=== PATIENT | female | born 1965 | race Caucasian/White ===

== ENCOUNTER 2016-11-17 17:02 | Emergency (ER) | payer OTHER ==
[2016-11-17 18:33] LABS: Urine Bilirubin Negative (Negative); Urine Glucose Negative (Negative); Urine Nitrite Negative (Negative)
[2016-11-17] MEDS ORDERED: Ketorolac INJ* 30 MG/ML 1 ML VIAL IV PUSH ONE (18:38)
[2016-11-17] MEDS ORDERED: NS 0.9% 1000 ML* 1,000 ML IV ONE (18:43)
[2016-11-17 18:54] LABS: Hematocrit 45 % (35-47); Hemoglobin 14.8 g/dl (12.0-16.0); Mean Corpuscular HGB Conc 33 g/dl (31-36); Mean Corpuscular Hemoglobin 31 pg (27-31); Mean Corpuscular Volume 93 fL (80-97); Mean Platelet Volume 7 um3 (7.4-10.4); Red Blood Count 4.82 10^6/ul (4.0-5.4); Red Cell Distribution Width 14 % (10.5-15); White Blood Count 12.2 10^3/ul (3.5-10.8)
[2016-11-17 19:10] LABS: ALT 20 U/L (7-52); AST 16 U/L (13-39); Albumin 4.7 g/dL (3.2-5.2); Alkaline Phosphatase 46 U/L (34-104); Anion Gap 7 mmol/L (2-11); BUN/Creatinine Ratio 14.3 (8-20); Blood Urea Nitrogen 10 mg/dL (6-24); C Reactive Protein < 1.00 mg/L (< 5.00); CO2 Carbon Dioxide 27 mmol/L (22-32); Calcium 9.5 mg/dL (8.6-10.3); Chloride 103 mmol/L (101-111); EGFR African American 114.4 (>60); EGFR Non-African American 88.9 (>60); Globulin 2.8 g/dL (2-4); Glucose 75 mg/dL (70-100); Lipase 39 U/L (11.0-82.0); Potassium 3.8 mmol/L (3.5-5.0); Sodium 137 mmol/L (133-145); Total Protein 7.5 g/dL (6.4-8.9)
--- NOTE | 2016-11-17 19:23 | RAD ---
INDICATION: Rib pain COMPARISON: Chest x-ray January 03, 2008 TECHNIQUE: PA and lateral dual-energy views were obtained. FINDINGS: Bones/Soft Tissues: There are no acute bony findings. Cardiomediastinal: The cardiomediastinal silhouette is normal. Lungs: There are no infiltrates. Pleura: There are no pleural effusions. Other: None IMPRESSION: NO ACTIVE DISEASE.
--- NOTE | 2016-11-17 19:25 | RAD ---
INDICATION: Atraumatic right rib pain COMPARISON: None TECHNIQUE: Multiple views of the ribs were obtained. FINDINGS: Bones: There is no evidence of acute rib fracture. LUNGS: The lungs are clear. There is no pneumothorax. Pleural spaces: There is no evidence of hemothorax. Other: There are surgical clips in left upper quadrant. IMPRESSION: NO ACUTE RIB FRACTURE
[2016-11-17 20:02] LABS: Troponin I 0.01 ng/mL (<0.04)
--- NOTE | 2016-11-17 21:41 | RAD ---
INDICATION: Abdominal pain COMPARISON: CT March 25, 2015 TECHNIQUE: Longitudinal and transverse scans of the right upper quadrant were obtained. Doppler interrogation of the hepatic and portal venous system was performed. FINDINGS: Liver: The liver is normal in size. There is an echogenic, nonshadowing lesion in the right hepatic lobe consistent with a hemangioma. This measures 1.2 cm. This likely represents the low-density lesion seen on earlier noncontrast CT imaging. The liver measures 13.6 cm in cephalocaudal dimension. Vessels: There is normal hepatic and portal venous flow. Bile ducts: There is no evidence of intrahepatic or extrahepatic ductal dilatation. The common duct measures 0.4 cm. Gallbladder: There is no evidence of cholelithiasis. There is incidental gallbladder polyp. Pancreas: The visualized pancreas appears normal. Evaluation is limited due to bowel gas Right kidney: The kidneys normal in size measuring 10.7 x 4.7 x 4.7 cm. There are multiple tiny renal calculi as also identified on earlier CT imaging. No hydronephrosis or renal parenchymal mass is seen. IVC and aorta: The aorta and superior vena cava appear normal. Fluid: There is no ascites. Other: None. IMPRESSION: INCIDENTAL GALLBLADDER POLYP. NO EVIDENCE OF CHOLELITHIASIS. NONOBSTRUCTIVE, BILATERAL RENAL CALCULI.
[2016-11-17] MEDS ORDERED: Carisoprodol TAB* 350 MG PO ONE (21:51)
[2016-11-17 22:05] VITALS: BP 126/84
--- NOTE | 2016-11-17 22:07 | UC ---
Back Pain HPI - HPI Summary HPI Summary: SINCE YESTERDAY, RIGHT MIDBACK PAIN RADIATES AROUND RIBS. WORSE WITH DEEP BREATHS. NO KNOWN INJURY, NO PAIN WITH URINATION. NO RASHES. HISTORY OH RA, HISTORY OF KIDNEY STONES. HAD GASTRIC BIPASS IN . - History of Current Complaint Chief Complaint: EDBackInjuryPain Stated Complaint: BACK PAIN RADIATING TO FRONT Time Seen by Provider: 11/17/16 17:07 Hx Obtained From: Patient, Family/News Clipping Cutter Onset/Duration: Sudden Onset, Lasting Days, Worse Since - TODAY Timing: Lasting Hours Severity Initially: Moderate Severity Currently: Severe - WITH POSITION AND DEEP BREATHING Pain Intensity: 8 Back Pain: Is Discrete @ - RIGHT MID BACK RADIATES AROUND RIB, Radiates To - RIGHT RIBS Character: Spasmodic Aggravating: Movement, Cough Alleviating: Rest, Position Associated Signs And Symptoms: Positive: Flank Pain. Negative: Swelling, Redness, Bruising, Fever, Weakness, Numbness, Tingling, Abdominal Pain, Bladder Incontinence, Bowel Incontinence, Weight Loss, Pain with Weight Bearing - Risk Factors AAA Risk Factors: Negative TAD Risk Factors: Negative Cauda Equina Risk Factors: Negative Epidural Abscess Risk Factors: Negative - Allergies/Home Medications Allergies/Adverse Reactions: Allergies Allergy/AdvReac Type Severity Reaction Status Date / Time Tramadol [From [facility]] Allergy Mild Itching Verified 11/18/15 18:25 SUGAR SUBSTITUTES Allergy Severe Anaphylatic Uncoded 11/18/15 18:25 Shock IODINE CONTRAST Allergy Mild Itching Uncoded 11/18/15 18:25 PMH/Surg Hx/FS Hx/Imm Hx Previously Healthy: Yes Endocrine History Of: Reports: Diabetes - HX OF. NONE SINCE GYPASS Respiratory History Of: Reports: Asthma GI/ History Of: Reports: Kidney Stones - 3 MONTHS Cancer History Of: Denies: Breast Cancer - Surgical History Surgical History: Yes Surgery Procedure, Year, and Place: GASTRIC BYPASS 10/07 [place]. D+C X3 [facility] [place]. BILAT CTR [facility] [place] 2003,2004. LAPAROSCOPY 1993 [place]. TONSILLECTOMY 1980 [facility] [place] - Family History Known Family History: Positive: Respiratory Disease Negative: Blood Disorder - Social History Occupation: Employed Full-time - FIELD ASSESSOR Lives: With Family Alcohol Use: Rare Substance Use Type: None Smoking Status (MU): Never Smoked Tobacco Household Exposure Type: Cigarettes Review of Systems Constitutional: Negative Skin: Negative Eyes: Negative ENT: Negative Respiratory: Negative Cardiovascular: Chest Pain - RIGHT RIB PAIN Gastrointestinal: Negative Genitourinary: Negative Musculoskeletal: Arthralgia, Myalgia Neurological: Negative Psychological: Negative All Other Systems Reviewed And Are Negative: Yes Physical Exam Triage Information Reviewed: Yes Appearance: Well-Appearing, No Pain Distress, Well-Nourished Vital Signs: Initial Vital Signs Temp 98.3 F 11/17/16 17:04 Pulse 90 11/17/16 17:04 Resp 18 11/17/16 17:04 BP 148/85 11/17/16 17:04 Pulse Ox 100 11/17/16 17:04 Vital Signs Reviewed: Yes Eye Exam: Normal Eyes: Positive: Conjunctiva Clear ENT Exam: Normal ENT: Positive: Normal ENT inspection, Hearing grossly normal, Pharynx normal, TMs normal Dental Exam: Normal Neck exam: Normal Neck: Positive: Supple, Nontender, No Lymphadenopathy. Negative: Tenderness @ Respiratory: Positive: Lungs clear, Normal breath sounds, No respiratory distress, No accessory muscle use. Negative: Chest non-tender - AND SPASM POSTERIO RIGHT PARASPINL MUSCOLES AND RIBTENDERNESS Cardiovascular Exam: Normal Cardiovascular: Positive: RRR, No Murmur, Pulses Normal, Brisk Capillary Refill Abdominal Exam: Normal Abdomen Description: Positive: Nontender, No Organomegaly, CVA Tenderness (R) Musculoskeletal Exam: Normal Musculoskeletal: Positive: Strength Intact, ROM Intact Neurological Exam: Normal Neurological: Positive: Alert, Muscle Tone Normal Psychological Exam: Normal Psychological: Positive: Normal Response To Family Skin Exam: Normal Skin: Negative: rashes Back Pain Course/Dx - Differential Dx/Diagnosis Differential Diagnosis/HQI/PQRI: Fracture, Renal Colic, Strain, Sprain, Other - OR, GALLBLADDER, PANCREATITIS Provider Diagnoses: MUSCLE STRAIN/SPASM RIB. NON OBSTRUCTIVE RENAL CALCULI. INCIDENTAL GALL BLADDER POLYP - Physician Notifications Discussed Patient Care With: DR NIMO GROVE : CONSULTED, SHE EXAMINED PATIENT BY MY REQUEST AND NOTED PALPABLE MUSCLE SPASM IN POSTERIOR RIGHT BACK/ RIBS. WELL REPRODUCABLE PAIN WITH MOVEMENT AND PALPATION OF THIS SPASM. MOREOVER, AFTER EXAMINATION, SHE CONCURRED IN ADVISEMENT OF TESTING WITH TROPONIN AND ULTRASOUND OF RIGHT KIDNEY AND GALLBLADDER PRECAUTION AGAINST POSSIBLE CONFOUNDING DIAGNOSES, GIVEN HEALTH HISTORY. Time Discussed With Above Provider: 19:35 Discharge - Discharge Plan Condition: Stable Disposition: HOME Prescriptions: Carisoprodol TAB* [Soma TAB*] 350 mg PO BID #20 tab MDD TWO TABS Patient Education Materials: Muscle Spasm (ED), Chest Wall Pain (ED) Referrals: [facility] [place] [facility] [Outside] Sabrina Mcgee MD [Primary Care Provider] - Additional Instructions: PHYSICAL THERAPY REFERRAL: You have been prescribed physical therapy. Treatments may include stretching, exercise, application of heat or cold, and other modalities. After an injury, PT can reduce swelling and pain. In recovery, PT is used to restore mobility and strength. Your specific treatment goals are: ___x__ Reduction of Swelling (EGS, US, ice as needed) _x____ Pain Reduction (EGS, US, ice as needed) __x___ TENS Pack Fitting and Instruction Wound Hydrotherapy __x___ Preservation of Mobility ___x__ Jainism of Mobility ___x__ Strength Jainism ___x__ Work or Sports Hardening This instruction sheet also serves as your PHYSICAL THERAPY REFERRAL! Please take it with you to the therapist, so he/she will be aware of your diagnosis and treatment plan. You may see the physical therapist of your choice for these treatments, but may wish to check with your insurance to be sure the provider you select is covered. It's important to see the doctor to whom you have been referred for follow up.
== END 2016-11-17 22:01 | disposition home or self-care (01) ==
LOC: ED 17:02
DX: S29.011A Strain of muscle and tendon of front wall of thorax, initial encounter (principal); N20.0 Calculus of kidney; R05 Cough; M54.9 Dorsalgia, unspecified; R07.9 Chest pain, unspecified; X58.XXXA Exposure to other specified factors, initial encounter; Y93.9 Activity, unspecified; Y92.9 Unspecified place or not applicable; Y99.9 Unspecified external cause status
CPT/HCPCS: 36415; 71020; 76705; 80053; 81003; 83605; 83690; 84484; 85025; 86140; 96361; 96374; 99282; A9270-GY; J1885

== ENCOUNTER 2017-01-30 19:04 | Emergency (ER) | payer OTHER ==
[2017-01-30] MEDS ORDERED: NS 0.9% 1000 ML* 1,000 ML IV ONE (20:13)
--- NOTE | 2017-01-30 20:14 | ED ---
Omar Pineda Anna, scribed for Memo Sen MD on 01/30/17 at 1949 . Abdominal Pain/Female - HPI Summary HPI Summary: Patient is a 51 y/o female coming to [facility] presenting with intermittent LLQ abdominal pain that began two weeks ago. She describes the severity of the pain as 4/10. Tonight, she was told by her doctor to come in for re-assessment. She had a fever of 100 F last night, but did not take anything for the fever. She additionally reports nausea. The pain and nausea are exacerbated by eating. She reports having bilateral stones and a cyst on her left ovary. She was recently diagnosed with diverticulitis. She finished a round of Abx four days ago. She has not tried Tylenol or other OTC medications. - History of Current Complaint Chief Complaint: EDSteffaniein Stated Complaint: ABD PAIN,FEVER Time Seen by Provider: 01/30/17 19:41 Hx Obtained From: Patient, Family/Inspector Watch Train - Accompanied by significant other Onset/Duration: Still Present Timing: Weeks Severity Initially: Moderate Severity Currently: Moderate Pain Intensity: 4 Pain Scale Used: 0-10 Numeric Location: Discrete At: LLQ Radiates: No Aggravating Factor(s): Food Associated Signs and Symptoms: Positive: Fever, Nausea Allergies/Adverse Reactions: Allergies Allergy/AdvReac Type Severity Reaction Status Date / Time Tramadol [From [facility]] Allergy Mild Itching Verified 01/30/17 19:22 SUGAR SUBSTITUTES Allergy Severe Anaphylatic Uncoded 01/30/17 19:22 Shock IODINE CONTRAST Allergy Mild Itching Uncoded 01/30/17 19:22 PMH/Surg Hx/FS Hx/Imm Hx Endocrine/Hematology History: Reports: Hx Diabetes - HX OF. NONE SINCE [place] Respiratory History: Reports: Hx Asthma GI History: Reports: Hx Gastroesophageal Reflux Disease History: Reports: Hx Kidney Infection - WITH STONES, Hx Kidney Stones - 3 MONTHS, Other Problems/Disorders - ovarian cyst Musculoskeletal History: Reports: Hx Arthritis - PSORIATIC, Hx Rheumatoid Arthritis Sensory History: Reports: Hx Contacts or Glasses Denies: Hx Hearing Aid Opthamlomology History: Reports: Hx Contacts or Glasses - Cancer History Hx Chemotherapy: No Hx Radiation Therapy: No - Surgical History Surgery Procedure, Year, and Place: GASTRIC BYPASS 10/07 [place]. D+C X3 [facility] [place]. BILAT CTR [facility] [place] 2003,2004. LAPAROSCOPY 1993 [place]. TONSILLECTOMY 1980 [facility] [place] Hx Anesthesia Reactions: No Infectious Disease History: No Infectious Disease History: Denies: Traveled Outside the [place] in Last 30 Days - Family History Known Family History: Positive: Respiratory Disease Negative: Blood Disorder - Social History Lives: With Family Alcohol Use: Rare Substance Use Type: Reports: None Smoking Status (MU): Never Smoked Tobacco Review of Systems Positive: Fever Positive: Abdominal Pain, Nausea All Other Systems Reviewed And Are Negative: Yes Physical Exam Triage Information Reviewed: Yes Vital Signs On Initial Exam: Initial Vitals Temp Pulse Resp BP Pulse Ox 97.4 F 87 16 117/80 99 01/30/17 19:10 01/30/17 19:10 01/30/17 19:10 01/30/17 19:10 01/30/17 19:10 Vital Signs Reviewed: Yes Appearance: Positive: Well-Appearing, No Pain Distress Skin: Positive: Warm Head/Face: Positive: Normal Head/Face Inspection ENT: Positive: Hearing grossly normal Neck: Positive: Supple Respiratory/Lung Sounds: Positive: Clear to Auscultation, Breath Sounds Present Cardiovascular: Positive: RRR Abdomen Description: Positive: Soft, Other: - mild llq tendernwess. Negative: Distended, Guarding Bowel Sounds: Positive: Present Musculoskeletal: Positive: Strength/ROM Intact Neurological: Positive: Normal Gait Diagnostics - Vital Signs Vital Signs Temp Pulse Resp BP Pulse Ox 01/30/17 19:10 97.4 F 87 16 117/80 99 - Laboratory Result Diagrams: 01/30/17 20:50 01/30/17 20:50 Lab Statement: Any lab studies that have been ordered have been reviewed, and results considered in the medical decision making process. - CT CT abd/pel CT Interpretation: Positive (See Comments) CT Interpretation Completed By: Radiologist - IMPRESSION: BILATERAL RENAL CALCULI. BILATERAL OVARIAN CYSTS ARE NOTED. PATIENT STATUS POST GASTRIC BYPASS SURGERY. BILATERAL RENAL CALCULI ALTHOUGH NO DEFINITE OBSTRUCTIVE UROPATHY IS NOTED. NO EVIDENCE OF BOWEL OBSTRUCTION IS NOTED. NO FREE FLUID IS IDENTIFIED. 17 MM LOW-DENSITY LESION IN THE RIGHT LOBE OF LIVER IS UNCHANGED SINCE MARCH 25, 2015. Re-Evaluation - Re-Evaluation First Eval Re-Evaluation Time: 22:38 Change: Improved Comment: Discussed results and plan of care with patient and family. Patient and family are agreeable with plan. Abdominal Pain Fem Course/Dx - Course Course Of Treatment: Patient is a 51 y/o female coming to [facility] presenting with intermittent LLQ abdominal pain that began two weeks ago. She describes the severity of the pain as 4/10. Tonight, she was told by her doctor to come in for re-assessment. She had a fever of 100 F last night, but did not take anything for the fever. She additionally reports nausea. The pain and nausea are exacerbated by eating. She reports having bilateral stones and a cyst on her left ovary. She was recently diagnosed with diverticulitis. She finished a round of Abx four days ago. She has not tried Tylenol or other OTC medications. The patient was given fluids in the ED course. Labs reveal WBC of 13.8. UA is WNL. CT abd/pel reveals bilateral renal calculi, bilateral ovarian cysts, but nothing obstructive. A low-density lesion in the right lobe of the liver is unchanged since February 2015. Patient will be discharged with follow up from primary care physician. Patient is agreeable with plan. - Diagnoses Provider Diagnoses: Abdominal pain Discharge - Discharge Plan Condition: Stable Disposition: HOME Patient Education Materials: Abdominal Pain (ED) Referrals: Sabrina Mcgee MD [Primary Care Provider] - Additional Instructions: Follow up with your primary care physician within 48 hours. Return to the Emergency Department for new or worsening symptoms. The documentation as recorded by the Omar jerez Anna accurately reflects the service I personally performed and the decisions made by me, Memo Sen MD.
[2017-01-30 20:29] LABS: Urine Bilirubin Negative (Negative); Urine Glucose Negative (Negative); Urine Nitrite Negative (Negative)
[2017-01-30 21:01] LABS: Hematocrit 41 % (35-47); Hemoglobin 13.4 g/dl (12.0-16.0); Mean Corpuscular HGB Conc 33 g/dl (31-36); Mean Corpuscular Hemoglobin 30 pg (27-31); Mean Corpuscular Volume 91 fL (80-97); Mean Platelet Volume 7 um3 (7.4-10.4); Red Blood Count 4.44 10^6/ul (4.0-5.4); Red Cell Distribution Width 13 % (10.5-15); White Blood Count 13.8 10^3/ul (3.5-10.8)
[2017-01-30 21:16] LABS: ALT 15 U/L (7-52); AST 15 U/L (13-39); Albumin 4.1 g/dL (3.2-5.2); Alkaline Phosphatase 37 U/L (34-104); Anion Gap 6 mmol/L (2-11); Blood Urea Nitrogen 9 mg/dL (6-24); C Reactive Protein < 1.00 mg/L (< 5.00); CO2 Carbon Dioxide 25 mmol/L (22-32); Calcium 9.1 mg/dL (8.6-10.3); Chloride 105 mmol/L (101-111); EGFR African American 115.8 (>60); EGFR Non-African American 90.1 (>60); Globulin 2.5 g/dL (2-4); Glucose 89 mg/dL (70-100); Lipase 33 U/L (11.0-82.0); Potassium 3.8 mmol/L (3.5-5.0); Sodium 136 mmol/L (133-145); Total Protein 6.6 g/dL (6.4-8.9)
--- NOTE | 2017-01-30 22:35 | RAD ---
Indication: Lower abdominal pain. CT of the abdomen and pelvis was performed without IV contrast administration. Oral contrast was administered. Coronal and sagittal reconstructed images were obtained. Lung bases demonstrate no pleural fluid, nodules or masses. Heart is of normal size without evidence of pericardial effusion. There is a hiatal hernia noted. Patient status post gastric bypass surgery. The liver is normal in size. Low density lesion is noted in the right lobe of liver of uncertain etiology measuring measuring 17 mm. No changes noted since previous exam of March 25, 2015. No intrahepatic duct dilatation is noted. Gallbladder demonstrates no calcified gallstones. No pericholecystic fluid or wall thickening is noted. The spleen is normal in size. Pancreas demonstrates no mass or pancreatic duct dilatation. Common duct is not dilated. Bilateral adrenal hyperplasia is noted. Multiple renal calculi are noted however no definite obstructive uropathy is noted. No retroperitoneal lymphadenopathy is noted. No dilated loops of bowel are noted. CT of the pelvis demonstrates no retroperitoneal or pelvic lymphadenopathy. Urinary bladder is unremarkable. No hernias are noted. Bilateral ovarian cysts or measuring 2.8 cm on the right and 2.9 cm from the left. No free fluid is identified. The urinary bladder is unremarkable. No hernias are noted. IMPRESSION: BILATERAL RENAL CALCULI. BILATERAL OVARIAN CYSTS ARE NOTED. PATIENT STATUS POST GASTRIC BYPASS SURGERY. BILATERAL RENAL CALCULI ALTHOUGH NO DEFINITE OBSTRUCTIVE UROPATHY IS NOTED. NO EVIDENCE OF BOWEL OBSTRUCTION IS NOTED. NO FREE FLUID IS IDENTIFIED. 17 MM LOW-DENSITY LESION IN THE RIGHT LOBE OF LIVER IS UNCHANGED SINCE MARCH 25, 2015.
[2017-01-30 23:00] VITALS: BP 134/87
== END 2017-01-30 22:59 | disposition home or self-care (01) ==
LOC: ED 19:04
DX: R10.32 Left lower quadrant pain (principal); R50.9 Fever, unspecified; R11.0 Nausea
CPT/HCPCS: 36415; 74176; 80053; 81003; 83690; 85025; 86140; 96360; 99282

== ENCOUNTER 2018-04-14 14:15 | Emergency (ER) | payer BC ==
[2018-04-14] MEDS ORDERED: Ketorolac INJ* 30 MG/ML 1 ML VIAL IV PUSH ONE (17:12)
[2018-04-14] MEDS ORDERED: NS 0.9% 1000 ML* 1,000 ML IV ONE (17:12)
[2018-04-14] MEDS ORDERED: Ondansetron INJ* 2 MG/ML VIAL IV ONE (17:12)
[2018-04-14 17:26] LABS: ABS Basophils 0.1 10^3/ul (0-0.2); ABS Eosinophils 0.3 10^3/ul (0-0.6); ABS Lymphocytes 2.7 10^3/ul (1.0-4.8); ABS Monocytes 0.8 10^3/ul (0-0.8); ABS Neutrophils 4.7 10^3/ul (1.5-7.7); ABS Nucleated RBC 0 10^3/ul; Eosinophil % 3.9 % (0-6); Hematocrit 36 % (35-47); Hemoglobin 11.7 g/dl (12.0-16.0); Lymphocyte % 31.2 % (25-47); Mean Corpuscular HGB Conc 33 g/dl (31-36); Mean Corpuscular Hemoglobin 29 pg (27-31); Mean Corpuscular Volume 86 fL (80-97); Mean Platelet Volume 7.1 um3 (7.4-10.4); Nucleated Red Blood Cells % 0; Platelet Count 322 10^3/ul (150-450); Red Blood Count 4.11 10^6/ul (4.00-5.40); Red Cell Distribution Width 15 % (10.5-15); White Blood Count 8.5 10^3/ul (3.5-10.8)
[2018-04-14 17:43] LABS: EGFR Non-African American 88.2 (>60)
[2018-04-14] MEDS ORDERED: Ondansetron ODT TAB* 4 MG ONE (18:07)
[2018-04-14] MEDS ORDERED: Ondansetron ODT TAB* 4 MG PO ONE (18:07)
--- NOTE | 2018-04-14 18:17 | RAD ---
CLINICAL HISTORY: Left flank pain. Relevant surgical history includes gastric bypass surgery. COMPARISON: Most recent comparison CT examination is dated January 30, 2017. TECHNIQUE: Noncontrast CT examination of the abdomen and pelvis from the lung bases through the initial tuberosities. FINDINGS: VISUALIZED LUNG BASES: There is a stable pleural-based pulmonary nodule measuring 5 mm in the dependent right lower lobe. Otherwise the visualized lung bases are grossly clear. There is no pleural effusion. ABDOMEN AND PELVIS: Evaluation of the solid organs and vasculature is limited without intravenous contrast. Surgical material at the gastroesophageal junction and gastrojejunostomy are consistent with the patient's reported history of gastric bypass surgery In the right lobe of the liver there is a stable 1.5 cm hypoattenuating focus. The liver is otherwise homogenous in attenuation. The spleen, pancreas and adrenal glands are grossly normal in appearance. The gallbladder is normal. There are multiple bilateral renal calculi in the collecting systems measuring up to 7 mm on the right and 5 mm on the left. There is no appearance of hydronephrosis. There are no calculi in either ureter or in the urinary bladder. Evaluation of the gastrointestinal tract is limited in the absence of oral contrast. The appendix is normal in appearance measuring 5 mm in diameter (axial image 80 and coronal image 56). The small and large bowel are not distended.Scattered rectosigmoid diverticula are seen but none exhibit focal inflammatory change. There is no gross retroperitoneal or mesenteric lymphadenopathy. The pelvic viscera is normal in appearance. The abdominal aorta and iliac arteries are normal in course and diameter. Degenerative changes include multilevel loss of intervertebral disc height involving the lower thoracic and lumbar spine.There are no sinister bone lesions. IMPRESSION: 1. Multiple bilateral renal calculi in the collecting systems without appearance of obstructive uropathy. 2. Scattered diverticulosis without acute inflammatory change characteristic of diverticulitis. 3. Additional chronic, degenerative and iatrogenic findings as described in the body of the report.
[2018-04-14 18:30] LABS: Urine Appearance Cloudy; Urine Blood Negative (Negative); Urine Color Yellow; Urine Ketones Trace (Negative); Urine Protein Negative (Negative); Urine Specific Gravity 1.016 (1.010-1.030); Urine Urobilinogen Negative (Negative)
[2018-04-14] MEDS ORDERED: Famotidine IV * 20 MG in NS 0.9% 100 ML* 100 ML IV ONE (18:32)
[2018-04-14] MEDS ORDERED: diPHENhydraMINE IV* 50 MG/ML 1 ml VIAL (BENADRYL) ONE (18:32)
[2018-04-14] MEDS ORDERED: diPHENhydraMINE IV* 50 MG/ML 1 ml VIAL (BENADRYL) IV ONE (18:32)
[2018-04-14] MEDS ORDERED: Dexamethasone IV* 4 MG/ML 5 ML VIAL (20 MG) IVPB ONE (18:32)
[2018-04-14] MEDS ORDERED: Famotidine IV* 10 MG/ML 2 ML (20 mg) ONE (18:39)
[2018-04-14] MEDS ORDERED: Dexamethasone IV* 4 MG/ML 1 ML (4 MG) ONE (18:39)
[2018-04-14] MEDS ORDERED: Dexamethasone IV* 4 MG/ML 1 ML (4 MG) IV SLOW PU ONE (18:42)
[2018-04-14] MEDS ORDERED: Famotidine IV* 10 MG/ML 2 ML (20 mg) IV SLOW PU ONE (18:42)
--- NOTE | 2018-04-14 20:50 | ED ---
Course/Dx - Course Course Of Treatment: Patient is doing better after observation and is requesting discharge. - Diagnoses Provider Diagnoses: Flank pain, Allergic reaction Discharge - Sign-Out/Discharge Documenting (check all that apply): Discharge/Admit/Transfer - Discharge Plan Condition: Good Disposition: HOME Patient Education Materials: Flank Pain (ED) Referrals: Sabrina Mcgee MD [Primary Care Provider] - - Billing Disposition and Condition Condition: GOOD Disposition: Home
[2018-04-14 20:59] VITALS: BP 132/69
--- NOTE | 2018-04-15 08:04 | ED ---
Ramses Pineda Angela, scribed for Michael Rosen MD on 04/14/18 at 1720 . Abdominal Pain/Female - HPI Summary HPI Summary: This pt is a 52 y/o female presenting to [facility] c/o left flank pain x3 days. Pt reports she has a hx of kidney stones and she states this pain is similar to prior kidney stones. Pt states her pain began 3 days ago on the left flank that now radiates to the left side of her back. Denies recent trauma. She currently rates her pain 8 out of 10 in severity. Additionally pt reports nausea, chills. She has decreased PO intake secondary to nausea. Pt states she has chronic hematuria, but has never been worked up for this. Denies vomiting, fever. She did not take any pain medications [employer]. Pt notes she usually passes the kidney stones on her own but had a couple that are too big to pass. The last time she had kidney stones was a couple of months ago. PMHx includes diverticulitis (last year), "used to be a diabetic." Her PCP is Dr. Mcgee. Allergies to Ultram and IV contrast. - History of Current Complaint Hx Obtained From: Patient Onset/Duration: Lasting Days, Still Present Timing: Days Severity Currently: Severe Pain Intensity: 8 Pain Scale Used: 0-10 Numeric Location: Flank - left Radiates: Yes Radiates to: Back <Michael Rosen - Last Filed: 04/14/18 19:08> <Don Gonzalez - Last Filed: 04/14/18 20:48> - History of Current Complaint Chief Complaint: EDFlankPain Stated Complaint: LT FLANK PAIN Time Seen by Provider: 04/14/18 17:02 Allergies/Adverse Reactions: Allergies Allergy/AdvReac Type Severity Reaction Status Date / Time tramadol Allergy Mild Itching Verified 04/14/18 16:36 SUGAR SUBSTITUTES Allergy Severe Anaphylatic Uncoded 04/14/18 16:34 Shock IODINE CONTRAST Allergy Mild Itching Uncoded 04/14/18 16:34 Home Medications: Home Medications Folic Acid TAB* [Folvite TAB*] 1 mg PO DAILY 04/14/18 [History Confirmed ] Gabapentin CAP(*) [Neurontin 100 mg CAP(*)] 100 mg PO QPM 04/14/18 [History Confirmed 04/14/18] Golimumab [Simponi] 50 mg SC MONTHLY 04/14/18 [History Confirmed 04/14/18] Hydroxychloroquine TAB* [Plaquenil TAB*] 200 mg PO BID 04/14/18 [History Confirmed 04/14/18] Methotrexate TAB* 15 mg PO Q7D 04/14/18 [History Confirmed 04/14/18] Montelukast Sodium TAB* [Singulair TAB*] 10 mg PO DAILY 04/14/18 [History Confirmed 04/14/18] Multivitamins/Minerals TAB* [Theragran/minerals TAB*] 1 tab PO DAILY 04/14/18 [ History Confirmed 04/14/18] Nabumetone TAB* [Relafen TAB*] 750 mg PO DAILY 04/14/18 [History Confirmed 04/14] Pantoprazole TAB (NF) [Protonix TAB (NF)] 40 mg PO DAILY 04/14/18 [History Confirmed 04/14/18] PMH/Surg Hx/FS Hx/Imm Hx Endocrine/Hematology History: Denies: Hx Diabetes - HX OF. NONE SINCE GYPASS Cardiovascular History: Denies: Hx Hypertension, Hx Pacemaker/ICD Respiratory History: Reports: Hx Asthma Denies: Hx Chronic Obstructive Pulmonary Disease (COPD) GI History: Reports: Hx Gastroesophageal Reflux Disease, Other GI Disorders - Diverticulitis History: Reports: Hx Kidney Infection - WITH STONES, Hx Kidney Stones, Other Problems/Disorders - ovarian cyst Denies: Hx Renal Disease Musculoskeletal History: Reports: Hx Arthritis - PSORIATIC, Hx Rheumatoid Arthritis Sensory History: Reports: Hx Contacts or Glasses Denies: Hx Hearing Aid Opthamlomology History: Reports: Hx Contacts or Glasses Psychiatric History: Denies: Hx Panic Disorder - Cancer History Hx Chemotherapy: No Hx Radiation Therapy: No - Surgical History Surgery Procedure, Year, and Place: GASTRIC BYPASS 10/07 [place]. D+C X3 [facility]. BILAT CTR [facility] 2003,2004. LAPAROSCOPY 1993 [place]. TONSILLECTOMY 1981 [facility] Hx Anesthesia Reactions: No Infectious Disease History: No Infectious Disease History: Denies: Traveled Outside the [place] in Last 30 Days - Family History Known Family History: Positive: Respiratory Disease Negative: Blood Disorder - Social History Alcohol Use: Occasionally Substance Use Type: Reports: None Smoking Status (MU): Never Smoked Tobacco <Michael Rosen - Last Filed: 04/14/18 19:08> Review of Systems Positive: Chills. Negative: Fever Positive: Nausea. Negative: Vomiting Positive: flank pain - left, hematuria All Other Systems Reviewed And Are Negative: Yes <Michael Rosen - Last Filed: 04/14/18 19:08> Physical Exam - Summary Physical Exam Summary: GENERAL: Patient is a well developed and nourished female who is lying comfortable in the stretcher. Patient is not in any acute respiratory distress. HEAD AND FACE: Normocephalic EYES: PERRLA, EOMI x 2. EARS: Hearing grossly intact. MOUTH: Oropharynx within normal limits. NECK: Supple, trachea is midline, no adenopathy, no JVD, no carotid bruit. CHEST: Symmetric, no tenderness at palpation LUNGS: Clear to auscultation bilaterally. No wheezing or crackles. CVS: Regular rate and rhythm, S1 and S2 present, no murmurs or gallops appreciated. ABDOMEN: Soft. Bowel sounds are normal. No abdominal abnormal pulsations. Left CVA tenderness. EXTREMITIES: Full ROM in all major joints, no edema, no cyanosis or clubbing. NEURO: Alert and oriented x 3. No acute neurological deficits. Speech is normal and follows commands. SKIN: Dry and warm Triage Information Reviewed: Yes Vital Signs On Initial Exam: Initial Vitals Temp Pulse Resp BP Pulse Ox 97.3 F 78 19 144/90 97 04/14/18 14:36 04/14/18 14:36 04/14/18 14:36 04/14/18 14:36 04/14/18 14:36 Vital Signs Reviewed: Yes <Michael Rosen - Last Filed: 04/14/18 19:08> Vital Signs On Initial Exam: Initial Vitals Temp Pulse Resp BP Pulse Ox 36.3 C 78 19 144/90 97 04/14/18 14:36 04/14/18 14:36 04/14/18 14:36 04/14/18 14:36 04/14/18 14:36 <Don Gonzalez - Last Filed: 04/14/18 20:48> Diagnostics - Vital Signs Vital Signs Temp Pulse Resp BP Pulse Ox 04/14/18 14:36 97.3 F 78 19 144/90 97 - Laboratory Result Diagrams: 04/14/18 17:20 04/14/18 17:20 Lab Statement: Any lab studies that have been ordered have been reviewed, and results considered in the medical decision making process. - CT Abdomen/Pelvis CT CT Interpretation: Positive (See Comments) - IMPRESSION: 1. Multiple bilateral renal calculi in the collecting systems without appearance of obstructive uropathy. 2. Scattered diverticulosis without acute inflammatory change characteristic of diverticulitis. 3. Additional chronic, degenerative and iatrogenic findings as described in the body of the report. Dr. Rosen has reviewed this radiology report. CT Interpretation Completed By: Radiologist <Michael Rosen - Last Filed: 04/14/18 19:08> - Vital Signs Vital Signs Temp Pulse Resp BP Pulse Ox 04/14/18 19:17 72 130/86 99 04/14/18 19:00 75 99 04/14/18 18:48 80 100 04/14/18 18:47 78 135/85 100 04/14/18 14:36 36.3 C 78 19 144/90 97 - Laboratory Lab Results: Lab Results 04/14/18 04/14/18 04/14/18 Range/Units 17:20 17:20 17:20 WBC 8.5 (3.5-10.8) 10^3/ul RBC 4.11 (4.00-5.40) 10^6/ul Hgb 11.7 L (12.0-16.0) g/dl Hct 36 (35-47) % MCV 86 (80-97) fL MCH 29 (27-31) pg MCHC 33 (31-36) g/dl RDW 15 (10.5-15) % Plt Count 322 (150-450) 10^3/ul MPV 7.1 L (7.4-10.4) um3 Neut % (Auto) 54.7 (38-83) % Lymph % (Auto) 31.2 (25-47) % Whitman % (Auto) 9.3 H (0-7) % Eos % (Auto) 3.9 (0-6) % Baso % (Auto) 0.9 (0-2) % Absolute Neuts (auto) 4.7 (1.5-7.7) 10^3/ul Absolute Lymphs (auto) 2.7 (1.0-4.8) 10^3/ul Absolute Monos (auto) 0.8 (0-0.8) 10^3/ul Absolute Eos (auto) 0.3 (0-0.6) 10^3/ul Absolute Basos (auto) 0.1 (0-0.2) 10^3/ul Absolute Nucleated RBC 0 10^3/ul Nucleated RBC % 0 Sodium 138 (135-145) mmol/L Potassium 4.2 (3.5-5.0) mmol/L Chloride 104 (101-111) mmol/L Carbon Dioxide 27 (22-32) mmol/L Anion Gap 7 (2-11) mmol/L BUN 7 (6-24) mg/dL Creatinine 0.70 (0.51-0.95) mg/dL Est GFR ( Amer) 106.7 (>60) Est GFR (Non-Af Amer) 88.2 (>60) BUN/Creatinine Ratio 10.0 (8-20) Glucose 85 (70-100) mg/dL Lactic Acid 0.8 (0.5-2.0) mmol/L Calcium 9.4 (8.6-10.3) mg/dL Total Bilirubin 0.40 (0.2-1.0) mg/dL AST 15 (13-39) U/L ALT 14 (7-52) U/L Alkaline Phosphatase 36 (34-104) U/L C-Reactive Protein < 1.00 (<8.01) mg/L Total Protein 6.4 (6.4-8.9) g/dL Albumin 4.0 (3.2-5.2) g/dL Globulin 2.4 (2-4) g/dL Albumin/Globulin Ratio 1.7 (1-3) Urine Color Urine Appearance Urine pH (5-9) Ur Specific Inman (1.010-1.030) Urine Protein (Negative) Urine Ketones (Negative) Urine Blood (Negative) Urine Nitrate (Negative) Urine Bilirubin (Negative) Urine Urobilinogen (Negative) Ur Leukocyte Esterase (Negative) Urine WBC (Auto) (Absent) Urine RBC (Auto) (Absent) Ur Squamous Epith Cells (Absent) Urine Bacteria (Absent) Urine Yeast (Absent) Urine Glucose (Negative) 04/14/18 Range/Units 18:03 WBC (3.5-10.8) 10^3/ul RBC (4.00-5.40) 10^6/ul Hgb (12.0-16.0) g/dl Hct (35-47) % MCV (80-97) fL MCH (27-31) pg MCHC (31-36) g/dl RDW (10.5-15) % Plt Count (150-450) 10^3/ul MPV (7.4-10.4) um3 Neut % (Auto) (38-83) % Lymph % (Auto) (25-47) % Whitman % (Auto) (0-7) % Eos % (Auto) (0-6) % Baso % (Auto) (0-2) % Absolute Neuts (auto) (1.5-7.7) 10^3/ul Absolute Lymphs (auto) (1.0-4.8) 10^3/ul Absolute Monos (auto) (0-0.8) 10^3/ul Absolute Eos (auto) (0-0.6) 10^3/ul Absolute Basos (auto) (0-0.2) 10^3/ul Absolute Nucleated RBC 10^3/ul Nucleated RBC % Sodium (135-145) mmol/L Potassium (3.5-5.0) mmol/L Chloride (101-111) mmol/L Carbon Dioxide (22-32) mmol/L Anion Gap (2-11) mmol/L BUN (6-24) mg/dL Creatinine (0.51-0.95) mg/dL Est GFR ( Amer) (>60) Est GFR (Non-Af Amer) (>60) BUN/Creatinine Ratio (8-20) Glucose (70-100) mg/dL Lactic Acid (0.5-2.0) mmol/L Calcium (8.6-10.3) mg/dL Total Bilirubin (0.2-1.0) mg/dL AST (13-39) U/L ALT (7-52) U/L Alkaline Phosphatase (34-104) U/L C-Reactive Protein (<8.01) mg/L Total Protein (6.4-8.9) g/dL Albumin (3.2-5.2) g/dL Globulin (2-4) g/dL Albumin/Globulin Ratio (1-3) Urine Color Yellow Urine Appearance Cloudy Urine pH 5.0 (5-9) Ur Specific Inman 1.016 (1.010-1.030) Urine Protein Negative (Negative) Urine Ketones Trace A (Negative) Urine Blood Negative (Negative) Urine Nitrate Negative (Negative) Urine Bilirubin Negative (Negative) Urine Urobilinogen Negative (Negative) Ur Leukocyte Esterase 1+ A (Negative) Urine WBC (Auto) 1+(6-10/hpf) A (Absent) Urine RBC (Auto) Absent (Absent) Ur Squamous Epith Cells Present A (Absent) Urine Bacteria Absent (Absent) Urine Yeast Present A (Absent) Urine Glucose Negative (Negative) Result Diagrams: 04/14/18 17:20 04/14/18 17:20 Lab Statement: Any lab studies that have been ordered have been reviewed, and results considered in the medical decision making process. <Don Gonzalez - Last Filed: 04/14/18 20:48> Re-Evaluation - Re-Evaluation First Eval Re-Evaluation Time: 18:40 Comment: I ordered IV Zofran, but there is no IV Zofran available in the xis and the nurse decided to try ODT Zofran. Right after the pt took it, pt stated she is allergic to anything with sugar substitutes. I instructed the nurse to give the pt Benadryl but pt refused it. Pt reported her voice starting changing and felt throat tightenint, therefore pt was given 50 mg IV Benadryl, 8 mg IV Decadron, 20 mg IV Famotidine. On exam pt's uvula is unswollen and is midline. There are no hives and no wheezing on examination. I also discussed the cat scan results with the pt, which shows multiple stones without evidence of obstruction. We will continue to observe her in the ED given her allergic reaction. <Michael Rosen - Last Filed: 04/14/18 19:08> Abdominal Pain Fem Course/Dx - Course Course Of Treatment: Pt is signed out to Dr. Gonzalez, at shift change, pending observation in the ED given her allergic reaction. <Michael Rosen - Last Filed: 04/14/18 19:08> <Don Gonzalez - Last Filed: 04/14/18 20:48> - Diagnoses Provider Diagnoses: Flank pain, Allergic reaction Discharge - Sign-Out/Discharge Documenting (check all that apply): Sign-Out Patient Signing out patient TO: Don Gonzalez - pending observation <Michael Rosen - Last Filed: 04/14/18 19:08> - Billing Disposition and Condition Condition: GOOD Disposition: Home <Don Gonzalez - Last Filed: 04/14/18 20:48> - Discharge Plan Condition: Good Disposition: HOME Patient Education Materials: Flank Pain (ED) Referrals: Sabrina Mcgee MD [Primary Care Provider] - The documentation as recorded by the Ramses jerez Angela accurately reflects the service I personally performed and the decisions made by me, Michael Rosen MD.
== END 2018-04-14 20:58 | disposition home or self-care (01) ==
LOC: ED 14:15
DX: N20.0 Calculus of kidney (principal); T78.40XA Allergy, unspecified, initial encounter; K57.30 Diverticulosis of large intestine without perforation or abscess without bleeding; R11.0 Nausea; R68.83 Chills (without fever); R31.9 Hematuria, unspecified; L40.50 Arthropathic psoriasis, unspecified; M06.9 Rheumatoid arthritis, unspecified; Z87.19 Personal history of other diseases of the digestive system; Z87.442 Personal history of urinary calculi; Z88.8 Allergy status to other drugs, medicaments and biological substances; Z91.041 Radiographic dye allergy status
CPT/HCPCS: 36415; 74176; 80053; 81003; 81015; 83605; 85025; 86140; 87077; 87086; 96361; 96374; 96375; 99283; A9270-GY; J1100; J1200; J1885

== ENCOUNTER 2018-05-28 21:54 | Emergency (ER) | payer BC ==
--- NOTE | 2018-05-29 02:33 | ED ---
Upper Extremity Pain - HPI Summary HPI Summary: This is scribe Nadeem Wright documenting for attending Dr. Namrata Hernández MD. A 52 y/o female presents to ED c/o right hand pain. As per triage, Pt with c/o right hand pain/swelling after lifting a laundry basket this date 1400. . According to the patient she was picking up a basket when she heard something snap around 1400. The patient noted that the pain is mostly in the knuckle. In the ED room, the patient has a pulse of 76 BPM, O2 saturation of 99% and blood pressure of 152/93. Patient denied any medications for pain. - History of Current Complaint Chief Complaint: EDExtremityUpper Stated Complaint: RT HAND INJURY Time Seen by Provider: 05/29/18 01:04 Hx Obtained From: Patient Mechanism Of Injury: Other - Lifting basket Onset/Duration: Started Hours Ago, Still Present Timing: Constant Severity Currently: None Pain Location: Hand - Right Aggravating Factor(s): Nothing Alleviating Factor(s): Nothing Associated Signs & Symptoms: Positive: Other - Hand pain - Allergies/Home Medications Allergies/Adverse Reactions: Allergies Allergy/AdvReac Type Severity Reaction Status Date / Time tramadol Allergy Mild Itching Verified 05/28/18 22:07 ondansetron [From Zofran] Allergy Anaphylatic Verified 05/28/18 22:07 Shock SUGAR SUBSTITUTES Allergy Severe Anaphylatic Uncoded 05/28/18 22:07 Shock IODINE CONTRAST Allergy Mild Itching Uncoded 05/28/18 22:07 PMH/Surg Hx/FS Hx/Imm Hx Endocrine/Hematology History: Denies: Hx Diabetes - HX OF. NONE SINCE [place] Cardiovascular History: Denies: Hx Hypertension, Hx Pacemaker/ICD Respiratory History: Reports: Hx Asthma Denies: Hx Chronic Obstructive Pulmonary Disease (COPD) GI History: Reports: Hx Gastroesophageal Reflux Disease, Other GI Disorders - Diverticulitis History: Reports: Hx Kidney Infection - WITH STONES, Hx Kidney Stones, Other Problems/Disorders - ovarian cyst Denies: Hx Renal Disease Musculoskeletal History: Reports: Hx Arthritis - PSORIATIC, Hx Rheumatoid Arthritis Sensory History: Reports: Hx Contacts or Glasses Denies: Hx Hearing Aid Opthamlomology History: Reports: Hx Contacts or Glasses Psychiatric History: Denies: Hx Panic Disorder - Cancer History Hx Chemotherapy: No Hx Radiation Therapy: No - Surgical History Surgery Procedure, Year, and Place: GASTRIC BYPASS 10/07 [place]. D+C X3 [facility]. BILAT CTR [facility] 2003,2004. LAPAROSCOPY 1993 [place]. TONSILLECTOMY 1980 [facility] Hx Anesthesia Reactions: No Infectious Disease History: No Infectious Disease History: Denies: Traveled Outside the [place] in Last 30 Days - Family History Known Family History: Positive: Respiratory Disease Negative: Blood Disorder - Social History Alcohol Use: Occasionally Substance Use Type: Reports: None Smoking Status (MU): Never Smoked Tobacco Review of Systems Negative: Fever Positive: Other - POSITIVE: Right hand pain Positive: Other - POSITIVE: Right hand swelling All Other Systems Reviewed And Are Negative: Yes Physical Exam - Summary Physical Exam Summary: VITAL SIGNS: Reviewed. GENERAL: Patient is a well-developed and nourished female who is lying comfortable in the stretcher. Patient is not in any acute respiratory distress. HEAD AND FACE: No signs of trauma. No ecchymosis, hematomas or skull depressions. No sinus tenderness. EYES: PERRLA, EOMI x 2, No injected conjunctiva, no nystagmus. EARS: Hearing grossly intact. Ear canals and tympanic membranes are within normal limits. MOUTH: Oropharynx within normal limits. NECK: Supple, trachea is midline, no adenopathy, no JVD, no carotid bruit, no c- spine tenderness, neck with full ROM. CHEST: Symmetric, no tenderness at palpation LUNGS: Clear to auscultation bilaterally. No wheezing or crackles. CVS: Regular rate and rhythm, S1 and S2 present, no murmurs or gallops appreciated. ABDOMEN: Soft, non-tender. No signs of distention. No rebound no guarding, and no masses palpated. Bowel sounds are normal. EXTREMITIES: FROM in all major joints, no edema, no cyanosis or clubbing. Tenderness on the right dorsal hand. Decreased range of motion in fingers because of pain. NEURO: Alert and oriented x 3. No acute neurological deficits. Speech is normal and follows commands. SKIN: Dry and warm Triage Information Reviewed: Yes Vital Signs On Initial Exam: Initial Vitals Temp Pulse Resp BP Pulse Ox 97.9 F 72 16 130/85 99 05/28/18 22:01 05/28/18 22:01 05/28/18 22:01 05/28/18 22:01 05/28/18 22:01 Vital Signs Reviewed: Yes Diagnostics - Vital Signs Vital Signs Temp Pulse Resp BP Pulse Ox 05/29/18 01:04 66 100 05/29/18 01:02 60 152/93 98 05/28/18 22:01 97.9 F 72 16 130/85 99 - Laboratory Lab Statement: Any lab studies that have been ordered have been reviewed, and results considered in the medical decision making process. - Radiology HAND XR Radiology Interpretation Completed By: ED Physician - Negative. Pending official report. Course/Dx - Course Course Of Treatment: A 52 y/o female presents to ED c/o right hand pain. A Hand XR was negative. In the ED course, the patient recieved no medications as the patient refused any. Patient will be discharged with a diagnosis of right hand pain. Patient will be put in a sling and knuckle wrap. Patient is to follow up with Orthopedics on Thursday. Patient is agreeable with this plan. - Diagnoses Provider Diagnoses: Right hand pain Discharge - Sign-Out/Discharge Documenting (check all that apply): Patient Departure - DISCHARGE - Discharge Plan Condition: Stable Disposition: HOME Patient Education Materials: Arthralgia (ED) Referrals: Sabrina Mcgee MD [Primary Care Provider] - Donna Renteria MD [Medical Doctor] - 2 Days Additional Instructions: FOLLOW UP WITH ORTHOPEDICS ON THURSDAY. RETURN TO ED FOR ANY NEW OR WORSENING SYMPTOMS.
[2018-05-29 03:04] VITALS: BP 142/82
--- NOTE | 2018-05-29 07:59 | RAD ---
Indication: Right hand pain. 4 views of the right hand are reviewed. There is no fracture or dislocation. No other bone or joint abnormality is noted. IMPRESSION: No fracture of the right hand. R0
== END 2018-05-29 03:02 | disposition home or self-care (01) ==
LOC: ED 21:54
DX: M79.641 Pain in right hand (principal); Z87.442 Personal history of urinary calculi
CPT/HCPCS: 99282

== ENCOUNTER 2018-07-14 09:31 | Day surgery (SDC) | payer BC ==
--- NOTE | 2018-07-14 02:22 | HP ---
CC: Dr. Sabrina Mcgee * HISTORY AND PHYSICAL: DATE OF PLANNED ADMISSION AND SURGERY: 07/14/18 HISTORY OF PRESENT ILLNESS: Ms. Sanchez is a 52-year-old white female who is admitted with recurrent right renal colics, partially obstructing right ureteral calculus for cystoscopy, right ureteroscopy, laser lithotripsy, and right ureteral stent placement. Ms. Sanchez is a known stone former and had several episodes of bilateral renal colics in the past. She is known to have bilateral renal calculi and this was assumed to be secondary to medullary sponge kidney. She had a gastric bypass in 2008. The patient was seen in my office on several occasions because of on and off episodes of flank and abdominal pain. She was previously managed conservatively. She presented to my office one day prior to this admission with several days' history of right flank pain. She did not have any fever or chills. Her urine analysis showed +2 esterase and +3 blood. She was afebrile. Bilateral renal ultrasound showed bilateral multiple non-obstructing renal calculi measuring up to 7 mm. There was mild right hydroureter and a 6 mm calculus noted in the distal right ureter. PAST MEDICAL HISTORY AND REVIEW OF SYSTEMS: The patient has a history of diverticulitis and was recently treated with antibiotics for the condition. She is diabetic, maintained on metformin. She has a history of arthritis and is maintained on hydroxychloroquine 200 mg daily. PAST SURGICAL HISTORY: As mentioned earlier, she had a gastric bypass surgery in 2008. ALLERGIES: She has history of allergies of ENVIRONMENTAL ALLERGIES. She reports being allergic to ULTRAM, IV CONTRAST, and DIET SWEETENERS that gives her throat swelling. PHYSICAL EXAMINATION GENERAL: She is a moderately overweight while female who looks in moderate pain. VITAL SIGNS: Blood pressure 120/80, pulse of 74. LUNGS: Clear. HEART: Regular and rhythmic. No murmurs. ABDOMEN: There is some tenderness in the right upper quadrant and she has right CVA tenderness. IMPRESSION: 1. Multiple bilateral renal calculi secondary to medullary sponge kidney. 2. Recurrent episodes of right flank pain secondary to 5 to 6 mm calculus in the distal left ureter. 3. Status post gastric bypass. 4. Diabetes mellitus PLAN/RECOMMENDATIONS: Considering the above history, the fact the patient is diabetic, the presence of pyuria, plan is for cystoscopy, and right ureteral stent placement. If the bladder does not look infected, Rt ureteroscopy, laser lithotripsy will be performed. I have discussed the above plans with the patient. All her questions were answered. [id number]/[facility] #: [id number] FÁTIMA
[2018-07-14] MEDS ORDERED: cefTRIAXone(*) 1 GM ADVAN/BAG ONE (09:34)
[2018-07-14] MEDS ORDERED: oxyCODONE/Acetamin 5/325 MG* TAB PO PRN (10:50)
[2018-07-14] MEDS ORDERED: Naloxone* 0.4 MG/ML 1 ML VIAL IV PRN (10:50)
[2018-07-14] MEDS ORDERED: fentaNYL* 50 MCG/ML 2 ML VIAL (100 MCG VIAL) IV PRN (10:50)
[2018-07-14] MEDS ORDERED: HYDROcodone/ACETAMIN 5-325 MG* 1 TAB PO PRN (10:50)
[2018-07-14] MEDS ORDERED: DiMENhydriNATE IV* 50 MG/ML VIAL IV PUSH PRN (10:50)
[2018-07-14] MEDS ORDERED: Midazolam* 1 MG/ML 5 ML VIAL (5 MG) ONE (11:56)
[2018-07-14] MEDS ORDERED: fentaNYL* 50 MCG/ML 2 ML VIAL (100 MCG VIAL) ONE (11:56)
[2018-07-14] MEDS ORDERED: Propofol* 10 MG/ML 20 ML BTL IV PUSH ONE (12:26)
[2018-07-14] MEDS ORDERED: Lidocaine 2% PF * 5 ML VIAL ONE (12:26)
[2018-07-14] MEDS ORDERED: Iohexol 180 (CONTRAST) 10 ML SDV IV ONE (12:31)
[2018-07-14] MEDS ORDERED: PROCHLORPERAZINE INJ 5 MG/ML 2 ML VIAL ONE (12:52)
--- NOTE | 2018-07-14 13:32 | RAD ---
Indication: Right ureteral stent placement. 3 views of the right right hydronephrosis. 3 spot images demonstrates placement of a right ureteral stent. Approximately 7 seconds of fluoroscopy time was used. IMPRESSION: Fluoroscopic services provided for referring physician for right ureteral stent placement.
[2018-07-14 14:46] VITALS: BP 136/84
--- NOTE | 2018-07-14 15:20 | RAD ---
INDICATION: Postop stent placement. COMPARISON: Comparison is made with a prior retrograde pyelogram from July 14, 2018. TECHNIQUE: Frontal supine films of the abdomen were obtained. FINDINGS: The small bowel and colon appear nondistended. The patient is status post placement of a right ureteral stent which appears normal in position. There are bilateral renal calcifications most consistent with calculi. IMPRESSION: 1. STATUS POST RIGHT URETERAL STENT PLACEMENT. 2. BILATERAL RENAL CALCULI.
--- NOTE | 2018-07-15 05:54 | OP ---
CC: Dr. Sabrina Mcgee * DATE OF OPERATION: 07/14/18 - [facility] DATE OF : 67 SURGEON: Jung Atkins MD ANESTHESIOLOGIST: Jia Ahuja MD ANESTHESIA: General PRE-OP DIAGNOSES: 1. Distal right ureteral calculus. 2. Recurrent renal colic due to above. POST-OP DIAGNOSES: 1. Distal right ureteral calculus. 2. Recurrent renal colic due to above. OPERATIVE PROCEDURE: 1. Cystoscopy. 2. Right ureteroscopy and extraction of distal right ureteral calculus (6 mm). 3. Right retrograde pyelography and placement of right ureteral stent (6-Portuguese ). INDICATIONS FOR PROCEDURE: Mrs. Sanchez is a 52-year-old white female who is a known stone former and who has bilateral renal calculi. She presented to the office yesterday with several days history of recurrent episodes of right renal colic. Renal ultrasound showed a 6 mm calculus in the distal right ureter associated with mild hydronephrosis. She also had bilateral nonobstructing renal calculi. Because of the above history and finding, the above procedure was advised and accepted. Pathology at cystoscopy, the bladder mucosa looks normal. There were no changes of cystitis. No suspicious bladder lesions were seen. The ureteral orifices look normal. Upon right ureteroscopy, a 6 mm calculus was noted in the distal ureter about 1 to 2 cm above the level of the orifice. The calculus had the gross appearance of a calcium oxalate stone. No calculi were noted in the proximal ureter. Right retrograde pyelography showed minimal hydronephrosis. DESCRIPTION OF PROCEDURE: After successful general anesthesia, the patient was placed in the lithotomy position and was prepped and draped for a cystoscopy. Cystoscopy was performed. The bladder was inspected and above findings were noted. A flexible-tip guidewire was introduced into the right orifice and positioned in the area of the renal pelvis. A size 6.5 semi-rigid ureteroscope was then introduced inside the bladder and passed without difficulty into the right ureter. The calculus was identified. It was felt it could be basketed without having to break it. The stone basket was then introduced through the ureteroscope. The stone was engaged and was extracted with minimal trauma to the ureteral wall. Final inspection showed minimal degree of hyperemia of the orifice. The mucosa looked normal. Retrograde pyelography was then performed and 6-Portuguese stent was then placed with proximal end coiling in the renal pelvis and the distal end coiling inside the bladder. There was good drainage of contrast from the kidney. The patient tolerated the procedure well and left the operating room in good condition. The plan is to keep the stent in place for about a week. It will be removed in the office under local anesthesia. A KUB will be obtained before the patient's discharge to check on the renal calculi. [id number]/[facility] #: [id number] [facility] SYSTEMJ[facility]
== END 2018-07-14 15:13 | disposition home or self-care (01) ==
LOC: OR 09:31
PROVIDERS: ATTEND Urology
DX: N13.2 Hydronephrosis with renal and ureteral calculous obstruction (principal); Z87.442 Personal history of urinary calculi; E11.9 Type 2 diabetes mellitus without complications; Z79.84 Long term (current) use of oral hypoglycemic drugs; Q61.5 Medullary cystic kidney
CPT/HCPCS: 74018; 74420; 81025; 82365; C1876; J0696; J0780; J2250; J2704; J3010

== ENCOUNTER 2018-08-02 06:01 | Day surgery (SDC) | payer BC ==
--- NOTE | 2018-07-22 06:38 | HP ---
CC: Dr. Sabrina Mcgee * HISTORY AND PHYSICAL: DATE OF PLANNED ADMISSION AND SURGERY: 08/02/18 HISTORY OF PRESENT ILLNESS: Ms. Sanchez is a 52-year-old white female who is admitted with right renal calculi for shockwave lithotripsy. Ms. Sanchez is a known stone former and has bilateral renal calculi and history of bilateral renal colics. About 3 weeks ago, she developed an episode of right renal colic secondary to a 5 mm calculus in the right ureter. She required right ureteroscopy, extraction of the stone, and stent placement. She did well following the procedure and the stent was removed in the office afterwards. Stone analysis was calcium oxalate. On her postoperative KUB, she was noted to have at least 2 right renal calculi measuring about 5 mm each. There were also similar calculi on the left side. Because of the above history and the fact that a stone of equivalent size gave her an episode of colic and required endoscopic extraction, the patient is admitted for elective shockwave lithotripsy of her right renal calculi. PAST MEDICAL HISTORY AND SYSTEM REVIEW: She has history of diverticulitis and was recently treated for the condition. She is diabetic, on metformin. She has history of arthritis. She had gastric bypass surgery in 2008. MEDICATIONS: The patient is maintained on the following medications: 1. Folic acid tablet 1 mg daily. 2. Methotrexate 15 mg p.o. once a week. 3. Neurontin 100 mg daily. 4. Plaquenil 200 mg twice a day. 5. Protonix 40 mg daily. 6. Relafen 750 mg daily. 7. Singulair 10 mg daily. 8. Vitamins 1 tablet daily. 9. Simponi 50 mg subcutaneously monthly. ALLERGIES: She reports being allergic or having intolerance to ULTRAM, IV CONTRAST IODINE, DIET SUGARS. She denies any cardiac disease. PHYSICAL EXAMINATION GENERAL: She is a moderately overweight white female. VITAL SIGNS: Blood pressure 112/80, pulse of 80. LUNGS: Clear. HEART: Regular and rhythmic. No murmurs. ABDOMEN: Soft. No masses. No tenderness and no CVA tenderness. IMPRESSION: Bilateral renal calculi with more stone burden in the right kidney. PLAN: Shockwave lithotripsy of the right renal calculi. I discussed the above plans with the patient. All her questions were answered. [id number]/[facility] #: [id number] [facility]ITALJodi
[~2018-08-02 06:01] MED LIST: Buffered Lidocaine 0.9% SYRIN* 5 ML/SYR SYRINGE INTRADERM ONE; Dexamethasone IV* 4 MG/ML 1 ML (4 MG) IV SLOW PU ONE
[2018-08-02] MEDS ORDERED: cefTRIAXone(*) 2 GM ADDV.VIAL IVPB ONE (06:12)
[2018-08-02] MEDS ORDERED: Dexamethasone IV* 4 MG/ML 1 ML (4 MG) ONE (06:12)
[2018-08-02] MEDS ORDERED: Buffered Lidocaine 0.9% SYRIN* 5 ML/SYR SYRINGE ONE (06:12)
[2018-08-02] MEDS ORDERED: oxyCODONE/Acetamin 5/325 MG* TAB PO PRN (07:19)
[2018-08-02] MEDS ORDERED: Naloxone* 0.4 MG/ML 1 ML VIAL IV PRN (07:19)
[2018-08-02] MEDS ORDERED: fentaNYL* 50 MCG/ML 2 ML VIAL (100 MCG VIAL) IV PRN (07:19)
[2018-08-02] MEDS ORDERED: DiMENhydriNATE IV* 50 MG/ML VIAL IV PUSH PRN (07:19)
[2018-08-02] MEDS ORDERED: Lidocaine 2% PF * 5 ML VIAL ONE (07:29)
[2018-08-02] MEDS ORDERED: Propofol* 10 MG/ML 20 ML BTL IV PUSH ONE (07:29)
[2018-08-02] MEDS ORDERED: fentaNYL* 50 MCG/ML 2 ML VIAL (100 MCG VIAL) ONE (07:30)
[2018-08-02] MEDS ORDERED: Midazolam* 1 MG/ML 5 ML VIAL (5 MG) ONE (07:30)
--- NOTE | 2018-08-02 08:10 | RAD ---
Indication: Preoperative evaluation for RIGHT side lithotripsy. Comparison: July 14, 2018 and April 14, 2018 CT. Technique: Supine view of the abdomen. Report: Bowel contents partially obscures the renal fossa. Previous RIGHT side ureteral stent no longer present. No RIGHT side urolithiasis evident. Small calcific densities overlying the LEFT renal fossa noted measuring up to 0.3 cm corresponding with stones based on April 14, [address] Surgical clips related to gastric bypass noted at the LEFT upper quadrant and LEFT lower quadrant. Unremarkable soft tissue contours. IMPRESSION: #. No conspicuous RIGHT side urolithiasis which may be technical due to superimposed bowel contents. #. LEFT side nephrolithiasis similar to the prior CT.
[2018-08-02] MEDS ORDERED: Phenylephrine INJ* 10 MG/ML 1 ML VIAL (10 MG) ONE (08:18)
[2018-08-02] MEDS ORDERED: EPHEDrine (Pressors)* 50 MG/ML VIAL ONE (08:18)
[2018-08-02] MEDS ORDERED: Succinylcholine* 20 MG/ML 10 ML VIAL ONE (08:19)
[2018-08-02] MEDS ORDERED: oxyCODONE/Acetamin 5/325 MG* TAB ONE (09:34)
[2018-08-02 10:20] VITALS: BP 134/82
--- NOTE | 2018-08-02 11:01 | OP ---
CC: Sabrina Mcgee MD OPERATIVE REPORT: DATE OF OPERATION: 08/02/18 DATE OF : 67 SURGEON: Jung Atkins MD ANESTHESIOLOGIST: Javier Bolden MD ANESTHESIA: General. PRE-OP DIAGNOSIS: Bilateral renal calculi. POST-OP DIAGNOSIS: Bilateral renal calculi. OPERATIVE PROCEDURE: Shockwave lithotripsy of right renal calculi (2 x 5 mm each). INDICATION FOR PROCEDURE: Ms. Sanchez is a 52-year-old white female who presented about 3 weeks ago with right renal colic secondary to a 5 mm right ureteral calculus. On the CT she was also noted to have bilateral renal calculi with 2 calculi in the mid to lower pole calyx of the right kidney measuring 5 mm each, and 2 calculi in the left kidney measuring 3 & 5 mm. The ureteral calculus did not pass spontaneously and she continued to have recurrent colics, and ended up requiring a right ureteroscopy and extraction of the calculus with stent placement. She also had The patient did well following the stent removal. Because the residual stones in the right kidney are the same size that gave her the problem with the obstructed right ureter, shockwave lithotripsy of the Rt renal was advised and accepted. PATHOLOGY: Preoperative KUB showed the 2 left renal calculi but the right renal calculi were obscured with overlying bowels. In the operating room, at fluoroscopy the 2 right renal calculi were adequately visualized. Both were adjacent to each other and located in a lower pole calyx. DESCRIPTION OF PROCEDURE: After successful general anesthesia, the patient was placed in the supine position on the shockwave lithotripsy table. At fluoroscopy, the 2 right renal calculi were visualized. The position of the patient and the generator were adjusted to have the 2 stones in the focus of the shock waves. The 2 calculi were adjacent to each other and were covered with the same shockwave field. A total of 1,800 shocks were then delivered at the rate of 60 shocks per minute. A 3 minutes break was taken after the initial 300 shocks. At the completion of the treatment, there was very good fragmentation of both stones. The patient tolerated the procedure well and left the operating room in good condition. [id number]/[facility] #: [id number] MTDD
== END 2018-08-02 10:26 | disposition home or self-care (01) ==
LOC: OR 06:01
PROVIDERS: ATTEND Urology
DX: N20.0 Calculus of kidney (principal); E11.9 Type 2 diabetes mellitus without complications; Z79.84 Long term (current) use of oral hypoglycemic drugs; K57.32 Diverticulitis of large intestine without perforation or abscess without bleeding; M19.90 Unspecified osteoarthritis, unspecified site
CPT/HCPCS: 74018; 81025; A9270-GY; J0330; J0696; J1100; J2250; J2704; J3010

== ENCOUNTER 2018-08-30 15:06 | Inpatient (IN) | payer BC ==
[2018-08-30] MEDS ORDERED: Ondansetron INJ* 2 MG/ML VIAL IV ONE (16:28)
[2018-08-30] MEDS ORDERED: cefTRIAXone(*) 1 GM in NS 0.9% 50 ML* 50 ML IVPB ONE (16:28)
[2018-08-30] MEDS ORDERED: Morphine VIAL* 4 MG/ML VIAL (1 ml vial) IV ONE ×2 (16:28→18:13)
[2018-08-30 16:47] LABS: ABS Basophils 0.1 10^3/ul (0-0.2); ABS Eosinophils 0.2 10^3/ul (0-0.6); ABS Lymphocytes 0.9 10^3/ul (1.0-4.8); ABS Monocytes 0.6 10^3/ul (0-0.8); ABS Neutrophils 16.4 10^3/ul (1.5-7.7); ABS Nucleated RBC 0 10^3/ul; Eosinophil % 1.1 % (0-6); Hematocrit 36 % (35-47); Hemoglobin 11.4 g/dl (12.0-16.0); Lymphocyte % 5.1 % (25-47); Mean Corpuscular HGB Conc 32 g/dl (31-36); Mean Corpuscular Hemoglobin 26 pg (27-31); Mean Corpuscular Volume 82 fL (80-97); Nucleated Red Blood Cells % 0; Platelet Count 378 10^3/ul (150-450); Red Blood Count 4.32 10^6/ul (4.00-5.40); Red Cell Distribution Width 15 % (10.5-15); White Blood Count 18.2 10^3/ul (3.5-10.8)
[2018-08-30 16:56] LABS: INR 0.91 (0.77-1.02)
[2018-08-30 17:06] LABS: EGFR Non-African American 80.2 (>60)
[2018-08-30] MEDS ORDERED: Iodixanol* (CONTRAST) 320 MG/ML 100 ML SDV IV ONE (17:20)
--- NOTE | 2018-08-30 17:22 | ED ---
Abdominal Pain/Female - HPI Summary HPI Summary: A 52 y/o female presents to the ED c/o abd pain since 12:30 08/30/2018. She states that the pain is constant and radiates to her back. She also claims that changing her position does not alleviate her symptoms. She rates her pain as 8/ 10. She also c/o chills and fever. She denies Erythema (eyes), Sore throat, Chest pain, Shortness of Breath, Cough, Vomiting, Nausea, Dysuria, Hematuria, Edema, Rash and Dizziness. She states that she had a positive urine culture last week but has not been taking abx. She was seen by Dr. Atkins, urology, for a follow up and he was concerned about diverticulitis. - History of Current Complaint Chief Complaint: EDFlankPain Stated Complaint: ABD PAIN Time Seen by Provider: 08/30/18 16:16 Hx Obtained From: Patient Onset/Duration: Sudden Onset, Lasting Days, Still Present Timing: Constant Severity Initially: Moderate Severity Currently: Moderate Pain Intensity: 8 Pain Scale Used: 0-10 Numeric Radiates to: Back Associated Signs and Symptoms: Positive: Urinary Symptoms - positive urine culture last week Allergies/Adverse Reactions: Allergies Allergy/AdvReac Type Severity Reaction Status Date / Time tramadol Allergy Mild Itching Verified 08/30/18 15:20 ondansetron [From Zofran] Allergy Anaphylatic Verified 08/30/18 15:20 Shock SUGAR SUBSTITUTES Allergy Severe Anaphylatic Uncoded 08/02/18 06:33 Shock IODINE CONTRAST Allergy Mild Itching Uncoded 08/02/18 06:33 Home Medications: Home Medications EPINEPHrine [Epipen 2-Jeremy] 0.3 mg IM ONCE 08/30/18 [History Confirmed 08/30/18] Ferrous Sulfate TAB* 325 mg PO QAM 08/30/18 [History Confirmed 08/30/18] Golimumab [Simponi] 50 mg SUBCUT MONTHLY 08/30/18 [History Confirmed 08/30/18] PMH/Surg Hx/FS Hx/Imm Hx Endocrine/Hematology History: Reports: Hx Diabetes - HX OF PRIOR TO GASTRIC BYPASS Cardiovascular History: Denies: Hx Hypertension, Hx Pacemaker/ICD Respiratory History: Reports: Hx Asthma, Hx Sleep Apnea - HX OF PRIOR TO GASTRIC BYPASS, Other Respiratory Problems/Disorders - HX OF PNEUMONIA- LAST 3 YEARS AGO Denies: Hx Chronic Obstructive Pulmonary Disease (COPD) GI History: Reports: Hx Gastroesophageal Reflux Disease - ON MEDICATION FOR, Other GI Disorders - Diverticulitis History: Reports: Hx Kidney Infection - CURRENTLY ON ANTIBIOTIC FOR PER PATIENT, Hx Kidney Stones, Other Problems/Disorders - ovarian cyst Denies: Hx Renal Disease Musculoskeletal History: Reports: Hx Arthritis - PSORIATIC AND RHEUMATOID, Hx Rheumatoid Arthritis Sensory History: Reports: Hx Contacts or Glasses - GLASSES Denies: Hx Hearing Aid Opthamlomology History: Reports: Hx Contacts or Glasses - GLASSES Neurological History: Reports: Hx Migraine - PRN MEDICATION FOR Psychiatric History: Denies: Hx Panic Disorder - Cancer History Hx Chemotherapy: No Hx Radiation Therapy: No - Surgical History Surgery Procedure, Year, and Place: GASTRIC BYPASS 10/07 [place]. [place] [facility] [place] [facility] [place]. LAPAROSCOPY 1993 [place]. TONSILLECTOMY 1980 [facility] [place]. RIGHT URETERAL STENT INSERTION-06/2018 Hx Anesthesia Reactions: No Infectious Disease History: No Infectious Disease History: Denies: Traveled Outside the [place] in Last 30 Days - Family History Known Family History: Positive: Respiratory Disease Negative: Blood Disorder - Social History Alcohol Use: Occasionally Substance Use Type: Reports: None Smoking Status (MU): Never Smoked Tobacco Have You Smoked in the Last Year: No Review of Systems Positive: Fever, Chills Negative: Erythema Negative: Sore Throat Negative: Chest Pain Negative: Shortness Of Breath, Cough Positive: Abdominal Pain - radiating to her back. Negative: Vomiting, Nausea Negative: dysuria, hematuria Positive: Myalgia - abd pain radiating to her back. Negative: Edema Negative: Rash Neurological: Negative - dizziness All Other Systems Reviewed And Are Negative: Yes Physical Exam - Summary Physical Exam Summary: Constitutional: Well-developed, Well-nourished, Alert. (-) Distressed Skin: Warm, Dry HENT: Normocephalic; Atraumatic Eyes: Conjunctiva normal Neck: Musculoskeletal ROM normal neck. (-) JVD, (-) Stridor, (-) Tracheal deviation Cardio: Rhythm regular, rate normal, Heart sounds normal; Intact distal pulses; The pedal pulses are 2+ and symmetric. Radial pulses are 2+ and symmetric. (-) Murmur Pulmonary/Chest wall: Effort normal. (-) Respiratory distress, (-) Wheezes, (-) Rales Abd: Soft, LLQ and left CVA tenderness (-) Distension, (-) Guarding, (-) Rebound Musculoskeletal: (-) Edema Lymph: (-) Cervical adenopathy Neuro: Alert, Oriented x3 Psych: Mood and affect Normal Triage Information Reviewed: Yes Vital Signs On Initial Exam: Initial Vitals Temp Pulse Resp BP Pulse Ox 99.1 F 89 16 145/92 100 08/30/18 15:15 08/30/18 15:15 08/30/18 15:15 08/30/18 15:15 08/30/18 15:15 Vital Signs Reviewed: Yes Diagnostics - Vital Signs Vital Signs Temp Pulse Resp BP Pulse Ox 08/30/18 16:48 20 08/30/18 15:15 99.1 F 89 16 145/92 100 - Laboratory Lab Results: Lab Results 08/30/18 08/30/18 08/30/18 Range/Units 16:33 16:33 16:33 WBC 18.2 H (3.5-10.8) 10^3/ul RBC 4.32 (4.00-5.40) 10^6/ul Hgb 11.4 L (12.0-16.0) g/dl Hct 36 (35-47) % MCV 82 (80-97) fL MCH 26 L (27-31) pg MCHC 32 (31-36) g/dl RDW 15 (10.5-15) % Plt Count 378 (150-450) 10^3/ul MPV 7.0 L (7.4-10.4) fL Neut % (Auto) 90.1 H (38-83) % Lymph % (Auto) 5.1 L (25-47) % [place] % (Auto) 3.4 (0-7) % Eos % (Auto) 1.1 (0-6) % Baso % (Auto) 0.3 (0-2) % Absolute Neuts (auto) 16.4 H (1.5-7.7) 10^3/ul Absolute Lymphs (auto) 0.9 L (1.0-4.8) 10^3/ul Absolute Monos (auto) 0.6 (0-0.8) 10^3/ul Absolute Eos (auto) 0.2 (0-0.6) 10^3/ul Absolute Basos (auto) 0.1 (0-0.2) 10^3/ul Absolute Nucleated RBC 0 10^3/ul Nucleated RBC % 0 INR (Anticoag Therapy) 0.91 (0.77-1.02) APTT 26.6 (26.0-36.3) seconds Sodium 138 (135-145) mmol/L Potassium 3.5 (3.5-5.0) mmol/L Chloride 108 (101-111) mmol/L Carbon Dioxide 22 (22-32) mmol/L Anion Gap 8 (2-11) mmol/L BUN 10 (6-24) mg/dL Creatinine 0.76 (0.51-0.95) mg/dL Est GFR ( Amer) 97.1 (>60) Est GFR (Non-Af Amer) 80.2 (>60) BUN/Creatinine Ratio 13.2 (8-20) Glucose 102 H (70-100) mg/dL Lactic Acid (0.5-2.0) mmol/L Calcium 9.1 (8.6-10.3) mg/dL Total Bilirubin 0.20 (0.2-1.0) mg/dL AST 14 (13-39) U/L ALT 12 (7-52) U/L Alkaline Phosphatase 54 (34-104) U/L Total Protein 6.9 (6.4-8.9) g/dL Albumin 4.3 (3.2-5.2) g/dL Globulin 2.6 (2-4) g/dL Albumin/Globulin Ratio 1.7 (1-3) 08/30/18 Range/Units 16:33 WBC (3.5-10.8) 10^3/ul RBC (4.00-5.40) 10^6/ul Hgb (12.0-16.0) g/dl Hct (35-47) % MCV (80-97) fL MCH (27-31) pg MCHC (31-36) g/dl RDW (10.5-15) % Plt Count (150-450) 10^3/ul MPV (7.4-10.4) fL Neut % (Auto) (38-83) % Lymph % (Auto) (25-47) % [place] % (Auto) (0-7) % Eos % (Auto) (0-6) % Baso % (Auto) (0-2) % Absolute Neuts (auto) (1.5-7.7) 10^3/ul Absolute Lymphs (auto) (1.0-4.8) 10^3/ul Absolute Monos (auto) (0-0.8) 10^3/ul Absolute Eos (auto) (0-0.6) 10^3/ul Absolute Basos (auto) (0-0.2) 10^3/ul Absolute Nucleated RBC 10^3/ul Nucleated RBC % INR (Anticoag Therapy) (0.77-1.02) APTT (26.0-36.3) seconds Sodium (135-145) mmol/L Potassium (3.5-5.0) mmol/L Chloride (101-111) mmol/L Carbon Dioxide (22-32) mmol/L Anion Gap (2-11) mmol/L BUN (6-24) mg/dL Creatinine (0.51-0.95) mg/dL Est GFR ( Amer) (>60) Est GFR (Non-Af Amer) (>60) BUN/Creatinine Ratio (8-20) Glucose (70-100) mg/dL Lactic Acid 1.2 (0.5-2.0) mmol/L Calcium (8.6-10.3) mg/dL Total Bilirubin (0.2-1.0) mg/dL AST (13-39) U/L ALT (7-52) U/L Alkaline Phosphatase (34-104) U/L Total Protein (6.4-8.9) g/dL Albumin (3.2-5.2) g/dL Globulin (2-4) g/dL Albumin/Globulin Ratio (1-3) Result Diagrams: 08/30/18 16:33 08/30/18 16:33 Lab Statement: Any lab studies that have been ordered have been reviewed, and results considered in the medical decision making process. - CT Abdomen/ pelvis CT Interpretation Completed By: Radiologist - 1. Stable small moderate hiatal hernia. 2. Stable colonic diverticulosis without evidence for acute diverticulitis. 3. Stable nonobstructive bilateral nephrolithiasis. 4. There is new subtle left perinephric fat stranding, limited evaluation for acute pyelonephritis without IV contrast, but this possibility cannot be excluded. This report has been reviewed by the ED physician. Re-Evaluation - Re-Evaluation Second Eval Re-Evaluation Time: 18:00 Change: Unchanged Comment: Pt is still in pain First Eval Re-Evaluation Time: 17:30 Change: Unchanged Comment: Rectal exam- blood in stool Abdominal Pain Fem Course/Dx - Course Course Of Treatment: A 52 y/o female presents to the ED c/o abd pain since 12: 30 08/30/2018. Her abdomen pelvis CT revealed: 1. Stable small moderate hiatal hernia. 2. Stable colonic diverticulosis without evidence for acute diverticulitis. 3. Stable nonobstructive bilateral nephrolithiasis. 4. There is new subtle left perinephric fat stranding, limited evaluation for acute pyelonephritis without IV contrast, but this possibility cannot be excluded. Lab results were obtained. Dx: pyelonephritis, sepsis. The pt will be admitted to Dr. Rice, hospitalist. - Diagnoses Provider Diagnoses: Pyelonephritis, Sepsis - Provider Notifications Discussed Care Of Patient With: Jung Atkins Time Discussed With Above Provider: 16:15 Instructed by Provider To: Other - During pt follow up exam he had concern for diverticulitis vs. pyelonephritis. He states that her left side kidney stones are stable and there were no signs of obstruction. Discharge - Sign-Out/Discharge Documenting (check all that apply): Patient Departure - Admit - Discharge Plan Condition: Fair Disposition: ADMITTED TO [facility] Referrals: Sabrina Mcgee MD [Primary Care Provider] - - Attestation Statements Document Initiated by Scribe: Yes Documenting Scribe: Nikolai Nicholas Provider For Whom Scribe is Documenting (Include Credential): Rojelio Swenson MD Scribe Attestation: Nikolai Pineda, scribed for Rojelio Swenson MD on 08/30/18 at 1921. Consult Consult: 18:15-Dr. Rice, hospitalist, will accept admit.
[2018-08-30] MEDS ORDERED: Ketorolac INJ* 30 MG/ML 1 ML VIAL IV PUSH ONE (18:13)
[2018-08-30 18:30] LABS: Urine Appearance Clear; Urine Blood 1+ (Negative); Urine Color Yellow; Urine Ketones Trace (Negative); Urine Protein Negative (Negative); Urine Red Blood Cell 2+(6-10/hpf) (Absent); Urine Specific Gravity 1.013 (1.010-1.030); Urine Urobilinogen Negative (Negative); Urine White Blood Cell 3+(>20/hpf) (Absent)
[2018-08-30] MEDS ORDERED: Nabumetone TAB* 500 MG PO PRN (18:41)
[2018-08-30] MEDS ORDERED: Albuterol HFA INHALER* 8 gm MDI INH PRN (18:41)
[2018-08-30] MEDS ORDERED: Albuterol 2.5 MG/3 ML NEB.SOL* (0.083%) INH PRN (18:41)
[2018-08-30] MEDS ORDERED: tiZANidine TAB* 2 MG PO PRN (18:41)
[2018-08-30] MEDS: Ciprofloxacin 400MG IVPREMIX(* 400 MG/200 ML BAG IVPB SCH ×2 (20:43→21:14)
[2018-08-30] MEDS: NS 0.9% 1000 ML* 1,000 ML IV SCH (20:44)
[2018-08-30] MEDS: Enoxaparin(*) 40 MG/0.4 ML SYR SUBCUT SCH (21:14)
[2018-08-30] MEDS: Acetaminop/Codeine 30 MG TAB* 1 TAB (300 MG/30 MG) PO PRN (21:25)
--- NOTE | 2018-08-30 21:27 | HP ---
ADMITTING HISTORY AND PHYSICAL: DATE OF ADMISSION: 08/29/18 CHIEF COMPLAINT: Abdominal pain. HISTORY OF PRESENT ILLNESS: The patient is a 52-year-old lady with a history of diabetes, status post gastric bypass, currently not on any diabetic medications since her bypass and a history of rheumatoid arthritis, maintained on methotrexate and Plaquenil, who has bilateral renal calculi and has had history of bilateral renal colic. On 08/02/18, she had an elective shockwave lithotripsy of her right renal calculi and she mentions that she and Dr. Atkins are thinking about possibly doing one on the left; however she was told that it was still too small for this procedure. Back on 08/24/18, she became feeling some right-sided abdominal pain and the following day, she was evaluated by Dr. Atkins's office where urinalysis was done and where she was told that the left renal stones were still too small for elective shockwave lithotripsy. She mentions that on 08/27/18, Dr. Atkins's office called the old number that she had on file instead of her current number in her cellphone and hence was not able to get the message that she has been prescribed antibiotics. A few hours prior to admission at around 12:30, she became having some abdominal pain that radiates to her back more on the left side and hence presented to the ED given her complicated history. An abdominal CT scan was done given some concerns for a possible diverticulitis given her history, but this was not supported by the current CT scan. She was found to have a moderate hiatal hernia as evidenced by left pyelonephritis given the new subtle left perinephric fat stranding. In the ED, she had received Rocephin and ondansetron, 10 mg of morphine and ketorolac. PAST MEDICAL HISTORY: History of diverticulitis; history of diabetes, previously on metformin, no longer on metformin since her gastric bypass back in 2012. PAST SURGICAL HISTORY: She mentions she has had bilateral carpal tunnel release and several D and Cs for endometriosis. ALLERGIES: To ULTRAM, IV CONTRAST, IODINE, DIET SUGARS. FAMILY HISTORY: Diabetes mellitus, her mother and brother. Crohn disease, her younger brother. Breast cancer, she mentions that it runs on both sides of her family and rheumatoid arthritis on the father's side. SOCIAL HISTORY: She denies any history of IV drug use, alcohol abuse or smoking. She mentions that she lives with her and son, who is 19 years old. REVIEW OF SYSTEMS: She mentions that her abdominal pain is controlled by the pain medications that have been given to her that radiates to the back as discussed. Denies any recent headache, fever, chills, nausea, vomiting, chest pain, shortness of breath, diarrhea, constipation, pain and/increased frequency on urination, myalgias, arthralgias, throat pain or new skin lesions. The rest of the 14-point review of systems is otherwise unremarkable. PHYSICAL EXAMINATION GENERAL APPEARANCE: The patient is awake, alert, and oriented, x3, not in acute distress. VITAL SIGNS: Show the most recent vital signs of record with blood pressure of 145/92; 20 per minute respiratory rate; saturating at 100% on room air; 89 beats per minute heart rate, 99.1 degrees Fahrenheit. HEENT: Normocephalic, atraumatic. PERRLA. Extraocular muscles intact. Negative for icterus. Moist oral mucosa. Negative throat erythema. NECK: Soft, supple with no cervical lymphadenopathy. No JVD. CHEST: Clear to auscultation bilaterally. Good air entry. No wheezes, rales, or rhonchi. HEART: S1, S2 within normal limits. Regular rate and rhythm. No murmurs, rubs , or gallops. ABDOMEN: Soft, nondistended, slightly tender on deep palpation in the left lower quadrant; however, radiates to her back with positive costovertebral angle tenderness. EXTREMITIES: No cyanosis, clubbing, or edema. PSYCHIATRIC: No active psychosis, depression, suicidal or homicidal ideation. SKIN: Warm to touch. DIAGNOSTIC STUDIES/LAB DATA: Most recent and pertinent laboratories drawn show CBC with a WBC of 18.2, H and H of 11.4 and 36, platelets of 378. INR of 0.91, sodium and potassium of 138 and 3.5. BUN and creatinine of 10 and 0.76. GFR of 80.2. LFTs were found to be normal. CT scan of the abdomen described above. Please see above discussion. ASSESSMENT AND PLAN: The patient is a 52-year-old lady with a history of diverticulitis, currently diet controlled diabetes, status post gastric bypass as well as history of rheumatoid arthritis who is being admitted secondary to left pyelonephritis. 1. Left pyelonephritis. I have checked the cultures back on 08/25/18 where it shows her urine culture is positive for E. coli that is bull-sensitive and hence we will place her at this time on ciprofloxacin and we will further await repeat cultures. She currently does not appear septic at this time. We will place her on IV fluids ordered for 2 bags until she is reevaluated. 2. Abdominal pain radiating to the back with costovertebral angle tenderness: Secondary to the above, I will place the patient on Dilaudid with appropriate holding orders. 3. Diabetes mellitus, currently diet controlled after gastric bypass in 2012. We will check HbA1c and monitor fingersticks and if needed we will place her on insulin sliding scale. 4. History of rheumatoid arthritis. Continue methotrexate as well as Plaquenil. 5. DVT prophylaxis. Placed the patient on Lovenox 40 subcu daily. DISPOSITION: As above. [id number]/[facility] #: [id number] MTDD
[2018-08-31] MEDS: HYDROmorphone INJ1* 1 MG/ML SYRINGE IV SLOW PU PRN ×2 (00:11→08:10)
[2018-08-31] MEDS: NS 0.9% 1000 ML* 1,000 ML IV SCH (05:52)
[2018-08-31] MEDS ORDERED: cefTAZidime* 1 GM in NS 0.9% 50 ML* 50 ML IVPB SCH (06:00)
[2018-08-31 06:02] LABS: Hematocrit 31 % (35-47); Hemoglobin 10.1 g/dl (12.0-16.0); Mean Corpuscular HGB Conc 33 g/dl (31-36); Mean Corpuscular Hemoglobin 27 pg (27-31); Mean Corpuscular Volume 82 fL (80-97); Mean Platelet Volume 7.5 fL (7.4-10.4); Platelet Count 320 10^3/ul (150-450); Red Blood Count 3.77 10^6/ul (4.00-5.40); Red Cell Distribution Width 15 % (10.5-15); White Blood Count 20.9 10^3/ul (3.5-10.8)
[2018-08-31 06:20] LABS: EGFR Non-African American 88.2 (>60)
[2018-08-31] MEDS: Multivitamins/Minerals TAB PO SCH (08:09)
[2018-08-31] MEDS: Folic Acid TAB* 1 MG PO SCH (08:09)
[2018-08-31] MEDS: Montelukast Sodium TAB* 10 MG PO SCH (08:09)
[2018-08-31] MEDS: Omeprazole CAP* 20 MG PO SCH (08:09)
[2018-08-31] MEDS: Cefepime* 2 GM in Dextrose 50mL Q12H (Duplex) IV SCH ×2 (08:09→19:42)
[2018-08-31] MEDS: Acetaminop/Codeine 30 MG TAB* 1 TAB (300 MG/30 MG) PO PRN (08:10)
[2018-08-31] MEDS: SUMAtriptan TAB* 25 MG PO PRN (08:56)
[2018-08-31] MEDS ORDERED: Hydroxychloroquine TAB* 200 MG PO SCH (09:00)
[2018-08-31] MEDS ORDERED: HYDROmorphone INJ1* 1 MG/ML SYRINGE IV SLOW PU ONE (11:57)
[2018-08-31] MEDS ORDERED: Promethazine TAB* 25 MG PO PRN (12:51)
[2018-08-31] MEDS ORDERED: PROCHLORPERAZINE INJ 5 MG/ML 2 ML VIAL IV PRN (13:02)
--- NOTE | 2018-08-31 16:25 | PN ---
Subjective Date of Service: 08/31/18 Interval History: Tmax 99.1 left flank pain was uncontrolled with N/V this AM. improved with phenergan and diluadid. Ecoli in cultures. states she has severe allergy to ODT zofran but not IV. Objective Active Medications: Acetaminophen/Codeine Phosphate (Tylenol/Codeine 30 Mg Tab*) 1 tab PO DAILY PRN PRN Reason: PAIN Last Admin: 08/31/18 08:10 Dose: 1 tab Albuterol (Ventolin 2.5 Mg/3 Ml Neb.Twyla*) 2.5 mg INH Q4H PRN PRN Reason: SOB/WHEEZING Albuterol (Ventolin Hfa Inhaler*) 2 puff INH Q4H PRN PRN Reason: SOB/WHEEZING Enoxaparin Sodium (Lovenox(*)) 40 mg SUBCUT Q24H [facility] Last Admin: 08/30/18 21:14 Dose: 40 mg Folic Acid (Folvite Tab*) 1 mg PO QAM [facility] Last Admin: 08/31/18 08:09 Dose: 1 mg Gabapentin (Neurontin Cap(*)) 100 mg PO QPM [facility] Hydromorphone HCl (Dilaudid Inj1s*) 0.5 mg IV SLOW PU Q6H PRN PRN Reason: PAIN Last Admin: 08/31/18 08:10 Dose: 0.5 mg Hydroxychloroquine Sulfate (Plaquenil Tab*) 200 mg PO QAM [facility] Last Admin: 08/31/18 08:09 Dose: 200 mg Sodium Chloride (Ns 0.9% 1000 Ml*) 1,000 mls @ 125 mls/hr IV PER RATE [facility] Stop: 09/01/18 02:44 Last Admin: 08/31/18 05:52 Dose: 125 mls/hr Cefepime HCl (Maxipime 2 Gm In Dextrose Duplex (*)) 2 gm in 50 mls @ 100 mls/ hr IV Q12H [facility] Last Admin: 08/31/18 08:09 Dose: 100 mls/hr Methotrexate (Methotrexate Tab*) 15 mg PO WE [facility] Montelukast Sodium (Singulair Tab*) 10 mg PO QAM [facility] Last Admin: 08/31/18 08:09 Dose: 10 mg Multivitamins/Minerals (Theragran/Minerals Tab*) 1 tab PO QAM [facility] Last Admin: 08/31/18 08:09 Dose: 1 tab Nabumetone (Relafen Tab*) 750 mg PO DAILY PRN PRN Reason: INFLAMMATION/PAIN Last Admin: 08/31/18 03:57 Dose: 750 mg Omeprazole (Prilosec Cap*) 20 mg PO QAM [facility] Last Admin: 08/31/18 08:09 Dose: 20 mg Prochlorperazine Edisylate (Compazine Inj*) 5 mg IV Q6H PRN PRN Reason: NAUSEA/VOMITING Promethazine HCl (Phenergan Tab*) 25 mg PO Q6H PRN PRN Reason: NAUSEA/VOMITING Sumatriptan Succinate (Imitrex Tab*) 25 mg PO .SEE COMMENTS PRN PRN Reason: MIGRAINE HEADACHE Last Admin: 08/31/18 08:56 Dose: 25 mg Vital Signs - 8 hr 08/31/18 08/31/18 08/31/18 08:57 11:41 12:13 Respiratory 14 14 16 Rate Oxygen Devices in Use Now: None Appearance: NAD Eyes: No Scleral Icterus, PERRLA Ears/Nose/Mouth/Throat: NL Teeth, Lips, Gums, Clear Oropharnyx Respiratory: Symmetrical Chest Expansion and Respiratory Effort, Clear to Auscultation Cardiovascular: NL Sounds; No Murmurs; No JVD, RRR Abdominal: - - soft, tenderness in left CVA and left flank. nondistended. Extremities: No Edema Skin: No Rash or Ulcers Neurological: Alert and Oriented x 3, NL Sensation, NL Muscle Strength and Tone Nutrition: Taking PO's Result Diagrams: 08/31/18 05:34 08/31/18 05:34 Additional Lab and Data: Laboratory Results - last 24 hr 08/30/18 08/31/18 08/31/18 19:12 05:34 05:34 WBC 20.9 H RBC 3.77 L Hgb 10.1 L Hct 31 L MCV 82 MCH 27 MCHC 33 RDW 15 Plt Count 320 MPV 7.5 Sodium 136 Potassium 3.6 Chloride 107 Carbon Dioxide 23 Anion Gap 6 BUN 9 Creatinine 0.70 Est GFR ( Amer) 106.7 Est GFR (Non-Af Amer) 88.2 BUN/Creatinine Ratio 12.9 Glucose 95 POC Glucose (mg/dL) Hemoglobin A1c 6.2 H Calcium 8.1 L Phosphorus 2.7 Magnesium 1.6 L Total Bilirubin 0.50 AST 10 L ALT 9 Alkaline Phosphatase 51 Total Protein 5.9 L Albumin 3.4 Globulin 2.5 Albumin/Globulin Ratio 1.4 Triglycerides 61 Cholesterol 154 LDL Cholesterol 94 HDL Cholesterol 48.3 08/31/18 08/31/18 08/31/18 07:55 11:48 16:57 WBC RBC Hgb Hct MCV MCH MCHC RDW Plt Count MPV Sodium Potassium Chloride Carbon Dioxide Anion Gap BUN Creatinine Est GFR ( Amer) Est GFR (Non-Af Amer) BUN/Creatinine Ratio Glucose POC Glucose (mg/dL) 90 105 H 130 H Hemoglobin A1c Calcium Phosphorus Magnesium Total Bilirubin AST ALT Alkaline Phosphatase Total Protein Albumin Globulin Albumin/Globulin Ratio Triglycerides Cholesterol LDL Cholesterol HDL Cholesterol 08/31/18 21:26 WBC RBC Hgb Hct MCV MCH MCHC RDW Plt Count MPV Sodium Potassium Chloride Carbon Dioxide Anion Gap BUN Creatinine Est GFR ( Amer) Est GFR (Non-Af Amer) BUN/Creatinine Ratio Glucose POC Glucose (mg/dL) 119 H Hemoglobin A1c Calcium Phosphorus Magnesium Total Bilirubin AST ALT Alkaline Phosphatase Total Protein Albumin Globulin Albumin/Globulin Ratio Triglycerides Cholesterol LDL Cholesterol HDL Cholesterol Microbiology and Other Data: Microbiology 08/30/18 16:33 Blood Venous Aerobic Blood Culture - Preliminary Escherichia Coli 08/30/18 16:33 Blood Venous Anaerobic Blood Culture - Preliminary Escherichia Coli 08/30/18 17:59 Urine Urine Culture - Preliminary Escherichia Coli 08/30/18 16:33 Blood Venous Aerobic Blood Culture - Preliminary Escherichia Coli 08/30/18 16:33 Blood Venous Anaerobic Blood Culture - Preliminary Escherichia Coli Assess/Plan/Problems-Billing Assessment: 52 yo female PMH Rheumatoid Arthritis (on methotrexate, plaquenil), nephrolithiasis s/p recent lithotripsy on right 08/02/18, obesity s/p gastric bypass p/w left flank pain, ecoli pyelo, perinephric stranding. - Patient Problems (1) Pyelonephritis Current Visit: Yes Status: Acute Code(s): N12 - TUBULO-INTERSTITIAL NEPHRITIS, NOT SPCF ACUTE OR CHRONIC SNOMED Code(s): 71948279 Comment: continue cftx for Ecoli bacteremia/UTI, f/u sensitivies. monitor fever curve. left cva tenderness and mild left perinephric fat stranding on dilaudid IV prn, nabumetone (2) Rheumatoid arteritis Current Visit: Yes Status: Acute Code(s): I00 - RHEUMATIC FEVER WITHOUT HEART INVOLVEMENT SNOMED Code(s): 751486864 Comment: hold methotrexate and plaquenil in setting of sepsis/bacteremia. follows with Chrystal Boyd (3) Sepsis Current Visit: Yes Status: Acute Comment: leukocytosis, tachycardia, tachypnea. Source Ecoli bacteremia. (4) Bacteremia, escherichia coli Current Visit: Yes Status: Acute Code(s): R78.81 - BACTEREMIA SNOMED Code( s): 858860098297 Comment: plan as above (5) E-coli UTI Current Visit: Yes Status: Acute Code(s): N39.0 - URINARY TRACT INFECTION, SITE NOT SPECIFIED; B96.20 - UNSP ESCHERICHIA COLI [facility] Code(s): 104975864 Comment: plan as above (6) DVT prophylaxis Current Visit: Yes Status: Acute Code(s): DXI8826 - SNOMED Code(s): 334802608 Comment: calli (7) Full code status Current Visit: Yes Status: Acute Code(s): Z78.9 - OTHER SPECIFIED HEALTH STATUS SNOMED Code(s): 522577082 Comment: FULL CODE Status and Disposition: medicine inpatient, likely d/c in next 24-48 hours.
[2018-08-31] MEDS ORDERED: Gabapentin CAP(*) 100 MG PO SCH (18:00)
[2018-08-31] MEDS: Enoxaparin(*) 40 MG/0.4 ML SYR SUBCUT SCH (18:03)
[2018-09-01] MEDS: HYDROmorphone INJ1* 1 MG/ML SYRINGE IV SLOW PU PRN ×2 (03:16→09:44)
[2018-09-01] MEDS: Cefepime* 2 GM in Dextrose 50mL Q12H (Duplex) IV SCH (08:24)
[2018-09-01] MEDS: SUMAtriptan TAB* 25 MG PO PRN ×2 (08:42→15:39)
[2018-09-01] MEDS: Folic Acid TAB* 1 MG PO SCH (08:43)
[2018-09-01] MEDS: Montelukast Sodium TAB* 10 MG PO SCH (08:43)
[2018-09-01] MEDS: Omeprazole CAP* 20 MG PO SCH (08:43)
[2018-09-01] MEDS: Multivitamins/Minerals TAB PO SCH (08:43)
[2018-09-01] MEDS ORDERED: Methotrexate TAB* 2.5 MG PO SCH (09:00)
[2018-09-01] MEDS: Acetaminop/Codeine 30 MG TAB* 1 TAB (300 MG/30 MG) PO PRN (09:02)
[2018-09-01 11:22] VITALS: BP 115/67
--- NOTE | 2018-09-02 17:54 | DS ---
DISCHARGE SUMMARY: DATE OF ADMISSION: 08/30/18 DATE OF DISCHARGE: 09/01/18 ADMITTING PROVIDER: Aiden Rice MD PRIMARY CARE PROVIDER: Dr. Sabrina Mcgee. ATTENDING PHYSICIAN ON DAY OF DISCHARGE: Guru Jeffers MD. OUTPATIENT UROLOGIST: Dr. Jung Atkins. CHIEF COMPLAINT: Left-sided flank pain, fever. PRINCIPAL DIAGNOSIS: Left-sided pyelonephritis secondary to E. coli; E. coli bacteremia; sepsis. HISTORY OF PRESENT ILLNESS AND HOSPITAL COURSE: Paul Sanchez is a 52-year-old female with past medical history of non-insulin dependant diabetes mellitus, status post gastric bypass and off all diabetic medications; rheumatoid arthritis, on methotrexate, Plaquenil, and Simponi; bilateral renal calculi with recent shock- wave lithotripsy on 08/02/18 of her right renal stone and followup with Dr. Atkins, please see H and P of Dr. Aiden Rice for full details. She had a urinalysis drawn as outpatient with Dr. Atkins on and was told the left renal stone was too small for electric shock-wave lithotripsy. On 08/27/18, Dr. Atkins's office had tried to call her on antibiotic, but there was miscommunication with possible dial of an older phone number. On day of admission, she started having left flank pain. CT abdomen showed possible left pyelonephritis given some left perinephritic fat stranding. She was referred by hospitalist service for admission, started on ceftriaxone after review of prior E. coli, urine cultures that had been bull sensitive. This admission, she had evidence of sepsis with leukocytosis, tachycardia, tachypnea, and source of E. Coli bacteremia as UTI. She had a T- max of 98 to 99.1 that progressed further with the antibiotic therapy. She was requiring Tylenol No.3 for pain control and will be discharged with medication. She was ambulating well and sepsis finally had resolved. She was told to follow up with Dr. Atkins and Dr. Sabrina Mcgee as an outpatient with continued course of ciprofloxacin for her pyelonephritis. DISCHARGE MEDICATIONS: Include: 1. Tylenol/codeine 30 mg p.o. q. 8 hours with 20 tabs (new). 2. Albuterol (Ventolin) 2.5 mg inhaled q.6 hours p.r.n. 3. Ventolin HFA inhaler 2 puffs inhaled q.4 hours p.r.n. 4. Ciprofloxacin 500 mg p.o. b.i.d. for 5 more days. 5. Voltaren 1% gel topical b.i.d. p.r.n. 6. EpiPen IM once p.r.n. 7. Ferrous sulfate 325 mg p.o. q.a.m. 8. Folic acid 1 mg p.o. q.a.m. 9. Gabapentin 100 mg p.o. q.p.m. 10. Simponi (golimumab) 15 mg subcutaneously monthly (recommend hold until discussion with Gamal Boyd). 11. Hydroxychloroquine (Plaquenil) 200 mg p.o. q.a.m. (please hold until discussion with Dr. Gamal Boyd). 12. Methotrexate 15 mg p.o. weekly (please hold until discussion with mining engineer, Gamal Boyd). 13. Singulair 10 mg p.o. q.a.m. 14. Multivitamin 1 tab p.o. q.a.m. 15. Nabumetone 750 mg p.o. daily. 16. Protonix 40 mg p.o. q.a.m. 17. Phenergan 25 mg p.o. q.6 hours p.r.n. (new). 18. Sumatriptan 25 mg p.o. daily p.r.n. DISCHARGE DIET: Carbohydrate consistent, unchanged except there are no restrictions. FOLLOWUP: Please followup with Dr. Jung Atkins, Sabrina Mcgee (on 09/14/18) and Gamal Boyd, the latter which likes to discuss the timing of restarting her rheumatoid arthritis medications in the setting of severe infection. TIME SPENT ON DISCHARGE: Thirty five minutes. [id number]/[facility] #: [id number] FÁTIMA
== END 2018-09-01 17:25 | disposition home or self-care (01) | DRG 720 ==
LOC: ED 15:06 → MED 18:38 → OBSVTOIN 08-31 10:00 → MED 08-31 17:03
PROVIDERS: ADMIT Student in an Organized Health Care Education/Training Program; ATTEND Internal Medicine
DX: A41.51 Sepsis due to Escherichia coli [E. coli] (principal); N12 Tubulo-interstitial nephritis, not specified as acute or chronic; N39.0 Urinary tract infection, site not specified; M06.9 Rheumatoid arthritis, unspecified; B96.20 Unspecified Escherichia coli [E. coli] as the cause of diseases classified elsewhere; E11.9 Type 2 diabetes mellitus without complications; Z98.84 Bariatric surgery status; Z79.899 Other long term (current) drug therapy; Z91.041 Radiographic dye allergy status; Z88.8 Allergy status to other drugs, medicaments and biological substances; Z91.048 Other nonmedicinal substance allergy status; Z83.3 Family history of diabetes mellitus; Z80.3 Family history of malignant neoplasm of breast; Z82.61 Family history of arthritis; Z83.79 Family history of other diseases of the digestive system
CPT/HCPCS: 36415; 74176; 80053; 80061; 81003; 81015; 83036; 83605; 83735; 84100; 85025; 85027; 85610; 85730; 87040; 87077; 87086; 87186; 87205; 93005; 99284; A9270-GY; J0692; J0696; J0744; J0780; J1170; J1650; J1885; J2270; J2405; J8610

== ENCOUNTER 2019-03-10 02:38 | Emergency (ER) | payer BC ==
--- NOTE | 2019-03-10 02:59 | ED ---
Back Pain - HPI Summary HPI Summary: This patient is a 53 year old F presenting [facility] accompanied by with a chief complaint of back and left side pain that began earlier tonight. The patient rates the pain 7/10 in severity. Symptoms aggravated by nothing. Symptoms alleviated by nothing. Patient reports nausea. Patient denies fever, vomiting, and urinary symptoms. Patient reports a history of kidney stones with similar symptoms. - History of Current Complaint Chief Complaint: EDBackInjuryPain Stated Complaint: DEHYDRATION & LEFT SIDE/ABD PAIN PER PT Time Seen by Provider: 03/10/19 02:41 Hx Obtained From: Patient Onset/Duration: Sudden Onset, Lasting Hours, Still Present Onset/Duration: Started Hours Ago, Atraumatic, Still Present Timing: Constant Back Pain Location: Is Discrete @ - Left side Severity Initially: Moderate Severity Currently: Moderate Pain Intensity: 7 Pain Scale Used: 0-10 Numeric Aggravating Symptom(s): Nothing Alleviating Symptom(s): Nothing Associated Signs And Symptoms: Positive: Other - Positive nausea. Negative fever , vomiting, and urinary symptoms - Allergies/Home Medications Allergies/Adverse Reactions: Allergies Allergy/AdvReac Type Severity Reaction Status Date / Time tramadol Allergy Mild Itching Verified 03/10/19 02:43 Iodinated Contrast- Oral and Allergy Itching Verified 03/10/19 02:43 IV Dye ondansetron [From Zofran] Allergy Anaphylatic Verified 03/10/19 02:43 Shock SUGAR SUBSTITUTES Allergy Severe Anaphylatic Uncoded 03/10/19 02:43 Shock PMH/Surg Hx/FS Hx/Imm Hx Previously Healthy: No Endocrine/Hematology History: Reports: Hx Diabetes - HX OF PRIOR TO GASTRIC BYPASS Cardiovascular History: Denies: Hx Hypertension, Hx Pacemaker/ICD Respiratory History: Reports: Hx Asthma, Hx Sleep Apnea - HX OF PRIOR TO GASTRIC BYPASS, Other Respiratory Problems/Disorders - HX OF PNEUMONIA- LAST 3 YEARS AGO Denies: Hx Chronic Obstructive Pulmonary Disease (COPD) GI History: Reports: Hx Gastroesophageal Reflux Disease - ON MEDICATION FOR, Other GI Disorders - Diverticulitis History: Reports: Hx Kidney Infection - CURRENTLY ON ANTIBIOTIC FOR PER PATIENT, Hx Kidney Stones - with right uretal stent, Other Problems/ Disorders - Medullary Sponge Kidney Denies: Hx Renal Disease Musculoskeletal History: Reports: Hx Arthritis - PSORIATIC AND RHEUMATOID, Hx Rheumatoid Arthritis Sensory History: Reports: Hx Contacts or Glasses - GLASSES Denies: Hx Deafness, Hx Hearing Aid, Other Sensory Impairments Opthamlomology History: Reports: Hx Contacts or Glasses - GLASSES Denies: Other Sensory Impairments Neurological History: Reports: Hx Migraine - PRN MEDICATION FOR Psychiatric History: Denies: Hx Panic Disorder - Cancer History Hx Chemotherapy: No Hx Radiation Therapy: No - Surgical History Surgery Procedure, Year, and Place: GASTRIC BYPASS 10/07 [place]. D+C X3 [facility]. BILAT CTR [facility] 2003,2004. LAPAROSCOPY 1993 [place]. TONSILLECTOMY 1980 [facility]. RIGHT URETERAL STENT INSERTION-06/2018 Hx Anesthesia Reactions: No Infectious Disease History: No Infectious Disease History: Denies: Traveled Outside the [place] in Last 30 Days - Family History Known Family History: Positive: Respiratory Disease Negative: Blood Disorder - Social History Occupation: Employed Part-time Lives: With Family Alcohol Use: Occasionally Hx Substance Use: No Substance Use Type: Reports: None Hx Tobacco Use: No Smoking Status (MU): Never Smoked Tobacco Have You Smoked in the Last Year: No Review of Systems Negative: Fever Positive: Nausea, Other - Positive L flank pain. Negative: Vomiting Genitourinary: Negative Positive: Other - Positive back pain All Other Systems Reviewed And Are Negative: Yes Physical Exam - Summary Physical Exam Summary: VITAL SIGNS: Reviewed. GENERAL: Patient is a well-developed and nourished female who is lying comfortable in the stretcher. Patient is not in any acute respiratory distress. HEAD AND FACE: No signs of trauma. No ecchymosis, hematomas or skull depressions. No sinus tenderness. EYES: PERRLA, EOMI x 2, No injected conjunctiva, no nystagmus. EARS: Hearing grossly intact. Ear canals and tympanic membranes are within normal limits. MOUTH: Oropharynx within normal limits. NECK: Supple, trachea is midline, no adenopathy, no JVD, no carotid bruit, no c- spine tenderness, neck with full ROM CHEST: Symmetric, no tenderness at palpation LUNGS: Clear to auscultation bilaterally. No wheezing or crackles. CVS: Regular rate and rhythm, S1 and S2 present, no murmurs or gallops appreciated. ABDOMEN: Soft, mild L CVA tenderness. No signs of distention. No rebound no guarding, and no masses palpated. Bowel sounds are normal. EXTREMITIES: FROM in all major joints, no edema, no cyanosis or clubbing. NEURO: Alert and oriented x 3. No acute neurological deficits. Speech is normal and follows commands. SKIN: Dry and warm Triage Information Reviewed: Yes Vital Signs On Initial Exam: Initial Vitals Temp Pulse Resp BP Pulse Ox 98.1 F 75 16 148/92 99 03/10/19 02:42 03/10/19 02:42 03/10/19 02:42 03/10/19 02:42 03/10/19 02:42 Vital Signs Reviewed: Yes Diagnostics - Vital Signs Vital Signs Temp Pulse Resp BP Pulse Ox 03/10/19 02:42 98.1 F 75 16 148/92 99 - Laboratory Result Diagrams: 03/10/19 03:08 03/10/19 03:08 Lab Statement: Any lab studies that have been ordered have been reviewed, and results considered in the medical decision making process. - CT CT Abdomen and Pelvis CT Interpretation Completed By: Radiologist Summary of CT Findings: CT abdomen and pelvis reveals, per radiologist, 1. Status post gastric surgery. 2. Colonic diverticulosis. 3. Small hiatus hernia. 4. Stable hepatic lesion. 5. Multiple bilateral nonobstructing renal calculi. ED physician has reviewed this radiology report. Back Pain Course/Dx - Course Course Of Treatment: This patient is a 53 year old F presenting to [facility] accompanied by with a chief complaint of back and left side pain that began earlier tonight. Physical Exam Findings: Mild L CVA tenderness. CT abdomen and pelvis reveals, per radiologist, 1. Status post gastric surgery. 2. Colonic diverticulosis. 3. Small hiatus hernia. 4. Stable hepatic lesion. 5. Multiple bilateral nonobstructing renal calculi. Bloodwork and UA obtained. In the ED course the patient was given toradol, levofloxacin, reglan, morphine, and fluids. Patient will be discharged with follow up from PCP. The patient is agreeable with this plan. - Diagnoses Provider Diagnoses: UTI (urinary tract infection) Discharge - Sign-Out/Discharge Documenting (check all that apply): Patient Departure - Discharge home Patient Received Moderate/Deep Sedation with Procedure: No - Discharge Plan Condition: Stable Disposition: HOME Prescriptions: Levofloxacin TAB* [Levaquin TAB*] 500 mg PO DAILY #7 tab Patient Education Materials: Urinary Tract Infection in Women (ED) Referrals: Sabrina Mcgee MD [Primary Care Provider] - 2 Days Additional Instructions: RETURN TO THE EMERGENCY DEPARTMENT FOR NEW OR WORSENING SYMPTOMS - Attestation Statements Document Initiated by Scribe: Yes Documenting Scribe: Denise Lowery Provider For Whom Scribe is Documenting (Include Credential): Dr. Namrata Hernández MD Scribe Attestation: IDenise, scribed for Dr. Namrata Hernández MD on 03/10/19 at 0455. Status of Scribe Document: Ready
[2019-03-10] MEDS ORDERED: Ketorolac INJ* 30 MG/ML 1 ML VIAL IV PUSH ONE (03:01)
[2019-03-10] MEDS ORDERED: Morphine 4 MG/ML VIAL (1 ml) 4 MG/ML VIAL IV ONE (03:01)
[2019-03-10] MEDS ORDERED: NS 0.9% 1000 ML** 1,000 ML IV ONE (03:01)
[2019-03-10] MEDS ORDERED: Metoclopramide IV* 5 MG/ML 2 ML VIAL IV SLOW PU ONE (03:02)
[2019-03-10 03:14] LABS: ABS Eosinophils 0.4 10^3/ul (0-0.6); ABS Lymphocytes 2.9 10^3/ul (1.0-4.8); ABS Monocytes 0.7 10^3/ul (0-0.8); ABS Neutrophils 3.2 10^3/ul (1.5-7.7); Hematocrit 31 % (35-47); Hemoglobin 9.9 g/dL (12.0-16.0); Lymphocyte % 40.5 %; Mean Corpuscular HGB Conc 32 g/dL (31-36); Mean Corpuscular Hemoglobin 25 pg (27-31); Mean Corpuscular Volume 78 fL (80-97); Mean Platelet Volume 6.8 fL (7.4-10.4); Platelet Count 366 10^3/uL (150-450); Red Blood Count 4.02 10^6 /uL (3.70-4.87); Red Cell Distribution Width 17 % (10.5-15); White Blood Count 7.3 10^3/uL (3.5-10.8)
[2019-03-10 03:28] LABS: Urine Appearance Cloudy; Urine Bacteria Absent (Absent); Urine Bilirubin Negative (Negative); Urine Blood Negative (Negative); Urine Color Yellow; Urine Glucose Negative (Negative); Urine Ketones Negative (Negative); Urine Nitrite Negative (Negative); Urine Protein Negative (Negative); Urine Red Blood Cell 2+(6-10/hpf) (Absent); Urine Squamous Epithelial Cell Present (Absent); Urine Urobilinogen Negative (Negative); Urine White Blood Cell 2+(11-20/hpf) (Absent)
[2019-03-10 03:30] LABS: Albumin/Globulin Ratio 1.6 (1-3); BUN/Creatinine Ratio 14.3 (8-20); EGFR African American 95.3 (>60); EGFR Non-African American 78.7 (>60); Globulin 2.5 g/dL (2-4); Magnesium 1.9 mg/dL (1.9-2.7); Potassium 3.7 mmol/L (3.5-5.0); Total Bilirubin 0.3 mg/dL (0.2-1.0); Total Protein 6.5 g/dL (6.4-8.9)
[2019-03-10] MEDS ORDERED: Levofloxacin TAB* 500 MG PO ONE (04:52)
[2019-03-10 05:26] VITALS: BP 110/72
== END 2019-03-10 05:25 | disposition home or self-care (01) ==
LOC: ED 02:38
DX: N39.0 Urinary tract infection, site not specified (principal); R11.0 Nausea; M54.9 Dorsalgia, unspecified; R10.84 Generalized abdominal pain; K21.9 Gastro-esophageal reflux disease without esophagitis; Z98.84 Bariatric surgery status; Z87.442 Personal history of urinary calculi
CPT/HCPCS: 36415; 74176; 80053; 81003; 81015; 82150; 83690; 83735; 85025; 87077; 87086; 96374; 96375; 99284; J1885; J2270; J2765

== ENCOUNTER 2019-03-13 11:15 | Emergency (ER) | payer BC ==
[2019-03-13] MEDS ORDERED: Aspirin 81 mg CHEW TAB* 81 MG TAB.CHEW PO ONE ×2 (11:23→11:36)
[2019-03-13] MEDS ORDERED: Famotidine TAB* 20 MG PO ONE (11:23)
--- NOTE | 2019-03-13 11:35 | ED ---
HPI Chest Pain - HPI Summary HPI Summary: Patient is a 53 y/o F presenting to ED with complaints of left chest pain with radiation down to her left arm onsetting this morning at around 0200. She reports that the chest pain awoke her from her sleep. Initial pain is described as sharp. However, she notes that this sharp pain resolved spontaneously and since this initial episode she has been experiencing a dull, aching pain at her left chest constantly. In the room, she rates pain 2-3/10 at present. Left hand tingling and nausea are endorsed, patient denies SOB. She notes that she was lying flat when chest pain onset. Some abdominal pain is reported as well. Patient was started on Levaquin on 03/10/19 for UTI. No Hx or FMHx of cardiac disease. PSHx of gastric bypass. Nothing is noted to aggravate/alleviate Sx. Home medications and allergies are reviewed. - History of Current Complaint Chief Complaint: EDChestPainROMI Time Seen by Provider: 03/13/19 11:28 Hx Obtained From: Patient Onset/Duration: Started Hours Ago - onset 0200 today, Still Present Timing: Constant, Lasting Hours Initial Severity: Moderate Current Severity: Mild Pain Intensity: 2 Pain Scale Used: 0-10 Numeric Chest Pain Location: Left Anterior Chest Pain Radiates: Yes Chest Pain Radiates To:: Arm - left Character: Dull/Aching, Sharp/Stabbing - initially Aggravating Factor(s): Nothing Alleviating Factor(s): Nothing Associated Signs and Symptoms: Positive: Chest Pain, Tingling - left hand, Nausea, Abdominal Pain. Negative: Shortness of Breath - Additional Pertinent History Primary Care Physician: DAWIT - Allergy/Home Medications Allergies/Adverse Reactions: Allergies Allergy/AdvReac Type Severity Reaction Status Date / Time tramadol Allergy Mild Itching Verified 03/10/19 02:43 Iodinated Contrast- Oral and Allergy Itching Verified 03/10/19 02:43 IV Dye ondansetron [From Zofran] Allergy Anaphylatic Verified 03/10/19 02:43 Shock SUGAR SUBSTITUTES Allergy Severe Anaphylatic Uncoded 03/10/19 02:43 Shock PMH/Surg Hx/FS Hx/Imm Hx Endocrine/Hematology History: Reports: Hx Diabetes - HX OF PRIOR TO GASTRIC BYPASS Cardiovascular History: Denies: Hx Hypertension, Hx Pacemaker/ICD Respiratory History: Reports: Hx Asthma, Hx Sleep Apnea - HX OF PRIOR TO GASTRIC BYPASS, Other Respiratory Problems/Disorders - HX OF PNEUMONIA- LAST 3 YEARS AGO Denies: Hx Chronic Obstructive Pulmonary Disease (COPD) GI History: Reports: Hx Gastroesophageal Reflux Disease - ON MEDICATION FOR, Other GI Disorders - Diverticulitis History: Reports: Hx Kidney Infection - CURRENTLY ON ANTIBIOTIC FOR PER PATIENT, Hx Kidney Stones - with right uretal stent, Other Problems/ Disorders - Medullary Sponge Kidney Denies: Hx Renal Disease Musculoskeletal History: Reports: Hx Arthritis - PSORIATIC AND RHEUMATOID, Hx Rheumatoid Arthritis Sensory History: Reports: Hx Contacts or Glasses - GLASSES Denies: Hx Deafness, Hx Hearing Aid, Other Sensory Impairments Opthamlomology History: Reports: Hx Contacts or Glasses - GLASSES Denies: Other Sensory Impairments Neurological History: Reports: Hx Migraine - PRN MEDICATION FOR Psychiatric History: Denies: Hx Panic Disorder - Cancer History Hx Chemotherapy: No Hx Radiation Therapy: No - Surgical History Surgery Procedure, Year, and Place: GASTRIC BYPASS 10/07 [place]. [place] [facility] [place] [facility] [place] LAPAROSCOPY 1993 [place]. TONSILLECTOMY 1981 [facility] [place] RIGHT URETERAL STENT INSERTION-06/2018 Hx Anesthesia Reactions: No Infectious Disease History: No Infectious Disease History: Denies: Traveled Outside the [place] in Last 30 Days - Family History Known Family History: Positive: Respiratory Disease Negative: Cardiac Disease, Blood Disorder - Social History Alcohol Use: Occasionally Hx Substance Use: No Substance Use Type: Reports: None Hx Tobacco Use: No Smoking Status (MU): Never Smoked Tobacco Have You Smoked in the Last Year: No Review of Systems Positive: Chest Pain Negative: Shortness Of Breath Positive: Abdominal Pain, Nausea Neurological: Other - POSITIVE - LEFT HAND TINGLING All Other Systems Reviewed And Are Negative: Yes Physical Exam - Summary Physical Exam Summary: Appearance: well appearing, no pain distress Skin: warm, dry, reflects adequate perfusion Head/face: normal Eyes: EOMI, RHONDA ENT: mucous membranes moist Neck: supple, non-tender Respiratory: CTA, breath sounds present Cardiovascular: RRR, pulses symmetrical Abdomen: soft, epigastric discomfort noted, otherwise normal Bowel Sounds: present Musculoskeletal: normal, strength/ROM intact Neuro: normal, sensory motor intact, A&Ox3 Triage Information Reviewed: Yes Vital Signs On Initial Exam: Initial Vitals Temp Pulse Resp BP Pulse Ox 97.5 F 88 18 156/92 95 05//19 11:20 03/13/19 11:20 03/13/19 11:20 03/13/19 11:20 03/13/19 11:20 Vital Signs Reviewed: Yes Diagnostics - Vital Signs Vital Signs Temp Pulse Resp BP Pulse Ox 03/13/19 11:20 97.5 F 88 18 156/92 95 - Laboratory Result Diagrams: 03/13/19 12:05 03/13/19 12:05 Lab Statement: Any lab studies that have been ordered have been reviewed, and results considered in the medical decision making process. - Radiology CHEST X-RAY Radiology Interpretation Completed By: Radiologist Summary of Radiographic Findings: IMPRESSION: NO ACTIVE CARDIOPULMONARY DISEASE IS NOTED. THIS REPORT WAS REVIEWED BY DR. MARIE. - EKG 1118 Cardiac Rate: NL - rate of 81 BPM EKG Rhythm: Sinus Rhythm ST Segment: Normal Summary of EKG Findings: EKG showed NSR with rate of 81 BPM, normal axis, normal interval, normal ST. Re-Evaluation - Re-Evaluation First Eval Re-Evaluation Time: 13:05 Comment: Results of labs and tests were discussed as well as disposition plan. Patient is agreeable with discharge to home. Patient notes Hx of ulcer disease at this time. Chest Pain Course/Dx - Course Course Of Treatment: 53-year-old female with GI upset and burning pain into the chest since starting Levaquin for UTI. Her UTI symptoms are better. She felt much better after oral Pepcid here. Chest x-ray, EKG and troponin are normal. She will increase her pantoprazole, be placed on H2 juan luis and Carafate. Follow-up primary care physician. - Chest Pain Differential Diagnosis/HQI/PQRI: ACS, CHF, GI Disease, Lower Respiratory Infection - Diagnoses Provider Diagnoses: Atypical chest pain, Gastritis, Iron deficiency anemia, Hx of gastric bypass Discharge - Sign-Out/Discharge Documenting (check all that apply): Patient Departure - discharge Patient Received Moderate/Deep Sedation with Procedure: No - Discharge Plan Condition: Stable Disposition: HOME Prescriptions: Famotidine TAB* [Pepcid 20 MG TAB*] 20 mg PO BID #30 tab Sucralfate TAB* [Carafate*] 1 gm PO QID #40 tab Patient Education Materials: Gastritis (ED) Referrals: Sabrina Mcgee MD [Primary Care Provider] - Additional Instructions: Double your pantoprazole over the next 3 days. Follow up with your doctor tomorrow. Return with persistent pain, worsening, difficulty breathing, new symptoms or other concerns. Take a multivitamin with iron. - Billing Disposition and Condition Condition: STABLE Disposition: Home - Attestation Statements Document Initiated by Remedios: Yes Documenting Scribe: CONNOR MCGOVERN Provider For Whom Remedios is Documenting (Include Credential): AYUSH MARIE MD Scribe Attestation: ICONNOR, scribed for AYUSH MARIE MD on 03/13/19 at 1442. Scribe Documentation Reviewed: Yes Provider Attestation: The documentation as recorded by the CONNOR jerez accurately reflects the service I personally performed and the decisions made by , AYUSH MARIE MD Status of Scribe Document: Viewed
[2019-03-13] MEDS ORDERED: Al Hydrox/Mg Hydrox/Simet LIQ* 30 ML UDC PO ONE (11:36)
[2019-03-13 12:24] LABS: INR 1.07 (0.82-1.09)
[2019-03-13 12:27] LABS: ABS Eosinophils 0.2 10^3/ul (0-0.6); ABS Monocytes 0.4 10^3/ul (0-0.8); ABS Neutrophils 3.2 10^3/ul (1.5-7.7); Eosinophil % 3.5 %; Hematocrit 34 % (35-47); Hemoglobin 10.5 g/dL (12.0-16.0); Lymphocyte % 34.8 %; Mean Corpuscular HGB Conc 31 g/dL (31-36); Mean Corpuscular Hemoglobin 25 pg (27-31); Mean Corpuscular Volume 78 fL (80-97); Mean Platelet Volume 7.3 fL (7.4-10.4); Nucleated Red Blood Cells % 0.1; Platelet Count 346 10^3/uL (150-450); Red Blood Count 4.31 10^6 /uL (3.70-4.87); Red Cell Distribution Width 17 % (10.5-15); White Blood Count 5.9 10^3/uL (3.5-10.8)
[2019-03-13 12:38] LABS: Albumin 4.4 g/dL (3.2-5.2); Albumin/Globulin Ratio 1.7 (1-3); BUN/Creatinine Ratio 15.3 (8-20); Calcium 9.7 mg/dL (8.6-10.3); EGFR Non-African American 70.2 (>60); Globulin 2.6 g/dL (2-4); Potassium 4.1 mmol/L (3.5-5.0); Total Bilirubin 0.4 mg/dL (0.2-1.0)
[2019-03-13 13:21] VITALS: BP 138/84
== END 2019-03-13 13:20 | disposition home or self-care (01) ==
LOC: ED 11:15
DX: R07.89 Other chest pain (principal); K29.70 Gastritis, unspecified, without bleeding; D50.9 Iron deficiency anemia, unspecified; R20.2 Paresthesia of skin; R11.0 Nausea; N39.0 Urinary tract infection, site not specified; K21.9 Gastro-esophageal reflux disease without esophagitis; M06.9 Rheumatoid arthritis, unspecified; L40.50 Arthropathic psoriasis, unspecified; G43.909 Migraine, unspecified, not intractable, without status migrainosus; Z98.84 Bariatric surgery status; Z88.5 Allergy status to narcotic agent; Z88.8 Allergy status to other drugs, medicaments and biological substances; Z91.041 Radiographic dye allergy status
CPT/HCPCS: 36415; 71045; 80053; 83036; 83605; 84484; 85025; 85610; 93005; 99283; A9270-GY

== ENCOUNTER 2020-01-03 13:24 | Emergency (ER) | payer BC ==
--- OUTSIDE RECORDS SUMMARY | 2020-01-03 13:42 | XMS REPORT | Continuity of Care Document ---
:1965 External Reference #:[id number] Author Name DALIA Sidhu (transmitted by agent of provider Gloria Whaley) Address [address] [place] [address] Care Team Providers Name Role Phone Sabrina Mcgee MD - Family Care Team Information Parts Department Supervisor [phone] Medicine Yobani Cian MD - Gastroenterology Care Team Information Parts Department Supervisor Problems Active Problems Provider Date Psoriasis with arthropathy Adria Salinas M.D. Onset: 08/12/2012 Psoriasis Adria Salinas M.D. Onset: 08/12/2012 Medications [facility] (Current) Use Adria Salinas M.D. Onset: 08/12/2012 Encounter Cardiomegaly Evens Szymanski M.D., [facility], Onset: 08/07/2014 [facility] Gastro-esophageal reflux disease Franklin Banegas MD Onset: 07/08/1995 with esophagitis Note: age 26 with Prevacid then pantoprazole Body mass index 30+ - obesity Franklin Banegas MD Onset: 07/08/1988 Social History Type Date Description Comments Sex Unknown ETOH Use Rarely consumes alcohol Tobacco Use Start: Unknown Patient has never smoked Recreational Drug Use Denies Drug Use Smoking Status Reviewed: 11/11/19 Patient has never smoked Allergies, Adverse Reactions, Alerts Active Allergies Reaction Severity Comments Date Ultram itchy/rash 03/03/2011 Iodinated Diagnostic Agents Severe 08/23/2014 Aspartame Anaphylaxis Severe 12/01/2014 ALL Artificial Sweetners Anaphylaxis Severe 07/20/2015 Zofran anaphylaxsis 04/06/2019 Levaquin chest pain 04/06/2019 Medications Active Medications SIG Qnty Indications Ordering Date Provider Meloxicam 1 by mouth twice a 60tabs L40.59 Gamal Boyd, 09/30/2019 7.5mg day every day [employer] MANAGER Tablets Humira Pen inject content of one 6units L40.59 Gamal Boyd, 05/10/2019 pen subcutaneously [employer] PROJECT MANAGER 40mg/0.4ML PNKT every other week Diclofenac Sodium apply 1 grams on 100gm L40.59 Gamal Boyd, 02/22/2019 hands twice daily [employer] PROJECT MANAGER 1% Gel Methotrexate 6 tbs by mouth every 72tabs L40.59 Gamal Boyd, 02/01/2016 2.5mg week [employer] PROJECT MANAGER Tablets Z79.899 Tylenol With Codeine #3 one tab po 30tabs Gamal Boyd, 08/23/2014 300-30mg daily as needed [employer]ISTICS PROJECT MANAGER Tablets for pain Epipen 2-Jeremy sc prn 2units Other Ordering 02/11/2013 0.3mg/0.3ML Device Provider Hydroxychloroquine Sulfate take one tablet 90tabs Z79.899 Gamal Boyd, 03/03/2011 200mg by mouth once a [employer] PROJECT MANAGER Tablets day L40.59 Excedrin Migraine 1 by mouth twice a Unknown day as needed [phone] Tablets headache max 2 days/wk Reglan 1 tab by mouth q6 Unknown 10mg Tablets hours as needed Sumatriptan Succinate as needed Unknown 25mg Tablets Multi Complete daily Unknown Capsules Proair HFA 2 puffs by mouth 1units Unknown 108(90Base) every 4 hours as mcg/Act Aerosol needed Folic Acid one tab daily 90tabs Z79.899 Gamal Boyd, 1mg Tablets LOGISTICS PROJECT MANAGER Pantoprazole Sodium 1 by mouth every 90tabs Unknown 20mg day Tablets DR Singulair 1 po qd 90tabs Unknown 10mg Tablets Tizanidine HCL 1-2 4 x per day prn Unknown 2mg Tablets Albuterol Sulfate 1 vial via 120units Unknown nebulizer q4-6hrs (2.5mg/3ML) 0.083% prn Nebulizer Medications Administered in Office Medication SIG Qnty Indications Ordering Provider Date Inj, Regadenoson, 0.1 MG Evens Arana Szymanski, M.D., 04/15/2013 Injection MARIO ALBERTO KISER Technetium TC 99M Evens Szymanski M.D., 04/15/2013 Tetrofosmin, Per Unit Dose MARIO ALBERTO KISER Up To 40 Millicuries Injection Immunizations CPT Code Status Date Vaccine Reaction Lot # [id number] Given 11/11/2019 Pneumococcal Conjugate [id number] Vaccine 13 Valent For Intramuscular Use 55076 Given 09/30/2019 Influenza Virus Vaccine, Patient denies ever [id number] Quadrivalent, Split, having a serious Preservative Free reaction to eggs or egg products, ever having a serious reaction or other problem after getting influenza vaccination, ever being diagnosed with Ijboeti-Auidf-Tqszipah , possibility of being , fever or moderate/severe illness today, allergy to latex. Patient verifies "I have read or had explained to me the information about influenza and influenza vaccine. I have had a chance to ask questions that were answered to my satisfaction. I believe I understand the benefits and risks of influenza vaccine and ask that the vaccine be given to me." Patient tolerated injection w/ no immediate adverse effect. 49894 Given 07/29/2016 Influ Virus Vaccine, [id number] Quadrivalent, Split Virus, [place] [address] Given 07/20/2015 Influenza Virus Vaccine, [id number] Quadrivalent, Split, Preservative Free 87574 Given 08/26/2013 Flu Vaccine Split Virus [id number] 4p Preservative Free For Indiv 3Yr Older Vital Signs Date Vital Result Comment 11/11/2019 11:34am Height 63 inches 5'3" Weight 179.00 lb Heart Rate 80 /min BP Systolic Sitting 118 mmHg BP Diastolic Sitting 78 mmHg Body Temperature 97.8 F O2 % BldC Oximetry 98 % BMI (Body Mass Index) 31.7 kg/m2 09/30/2019 10:39am Height 63 inches 5'3" Weight 175.00 lb Heart Rate 80 /min BP Systolic Sitting 117 mmHg BP Diastolic Sitting 77 mmHg Respiratory Rate 18 /min Body Temperature 99.1 F O2 % BldC Oximetry 98 % BMI (Body Mass Index) 31.0 kg/m2 Results Test Acquired Date Facility Test Result H/L Range Note CBC Auto 09/30/2019 [facility] White Blood 8.8 10^3/uL Normal 3.5-10.[address] [place] [address] [phone] Red Blood Count 4.21 10^6/uL Normal 3.70-4.87 Hemoglobin 10.6 g/dL Low 12.0-16.0 Hematocrit 32 % Low 35-47 Mean Corpuscular Volume 77 fL Low 80-97 Mean Corpuscular Hemoglobin 25 pg Low 27-31 Mean Corpuscular HGB Conc 33 g/dL Normal 31-36 Red Cell Distribution Width 18 % High 10-15 Platelet Count 404 10^3/uL Normal 150-450 Mean Platelet Volume 7.3 fL Low 7.4-10.4 Abs Neutrophils 5.1 10^3/uL Normal 1.5-7.7 Abs Lymphocytes 2.7 10^3/uL Normal 1.0-4.8 Abs Monocytes 0.8 10^3/uL Normal 0-0.8 Abs Eosinophils 0.2 10^3/uL Normal 0-0.6 Abs Basophils 0.1 10^3/uL Normal 0-0.2 Abs Nucleated RBC 0.0 10^3/uL Granulocyte % 57.4 % Lymphocyte % 30.6 % Monocyte % 8.6 % Eosinophil % 2.8 % Basophil % 0.6 % Nucleated Red Blood Cells % 0.0 Comp Metabolic 09/30/2019 [facility] Sodium 139 mmol/L Normal 135-[address] [place] [address] [phone] Potassium 4.2 mmol/L Normal 3.5-5.0 Chloride 108 mmol/L Normal 101-111 Co2 Carbon Dioxide 25 mmol/L Normal 22-32 Anion Gap 6 mmol/L Normal 2-11 Glucose 92 mg/dL Normal 70-100 Blood Urea Nitrogen 10 mg/dL Normal 6-24 Creatinine 0.75 mg/dL Normal 0.51-0.95 BUN/Creatinine Ratio 13.3 Normal 8-20 Calcium 9.5 mg/dL Normal 8.6-10.3 Total Protein 6.4 g/dL Normal 6.4-8.9 Albumin 4.4 g/dL Normal 3.2-5.2 Globulin 2.0 g/dL Normal 2-4 Albumin/Globulin Ratio 2.2 Normal 1-3 Total Bilirubin 0.30 mg/dL Normal 0.2-1.0 Alkaline Phosphatase 48 U/L Normal 34-104 Alt 12 U/L Normal 7-52 Ast 14 U/L Normal 13-39 Egfr Non- 81.1 >60 Egfr 98.2 >60 1 Laboratory test 09/30/2019 [facility] C Reactive < 1.00 Normal <8.[address] Protein mg/[place] [address] [phone] Erythrocyte Sed Rate 6 mm/Hr Normal 0-29 CBC Auto 08/19/2019 [facility] White Blood 6.1 10^3/uL Normal 3.5-10.[address] [place] [address] [phone] Red Blood Count 4.35 10^6/uL Normal 3.70-4.87 Hemoglobin 10.7 g/dL Low 12.0-16.0 Hematocrit 34 % Low 35-47 Mean Corpuscular Volume 77 fL Low 80-97 Mean Corpuscular Hemoglobin 25 pg Low 27-31 Mean Corpuscular HGB Conc 32 g/dL Normal 31-36 Red Cell Distribution Width 17 % High 10-15 Platelet Count 430 10^3/uL Normal 150-450 Mean Platelet Volume 7.1 fL Low 7.4-10.4 Abs Neutrophils 3.1 10^3/uL Normal 1.5-7.7 Abs Lymphocytes 2.1 10^3/uL Normal 1.0-4.8 Abs Monocytes 0.6 10^3/uL Normal 0-0.8 Abs Eosinophils 0.2 10^3/uL Normal 0-0.6 Abs Basophils 0.1 10^3/uL Normal 0-0.2 Abs Nucleated RBC 0.0 10^3/uL Granulocyte % 51.1 % Lymphocyte % 34.9 % Monocyte % 9.4 % Eosinophil % 3.5 % Basophil % 1.1 % Nucleated Red Blood Cells % 0.1 Comp Metabolic 08/19/2019 [facility] Sodium 140 mmol/L Normal 135-[address] [place] [address] [phone] Potassium 4.3 mmol/L Normal 3.5-5.0 Chloride 108 mmol/L Normal 101-111 Co2 Carbon Dioxide 25 mmol/L Normal 22-32 Anion Gap 7 mmol/L Normal 2-11 Glucose 87 mg/dL Normal 70-100 Blood Urea Nitrogen 10 mg/dL Normal 6-24 Creatinine 0.70 mg/dL Normal 0.51-0.95 BUN/Creatinine Ratio 14.3 Normal 8-20 Calcium 9.5 mg/dL Normal 8.6-10.3 Total Protein 6.4 g/dL Normal 6.4-8.9 Albumin 4.1 g/dL Normal 3.2-5.2 Globulin 2.3 g/dL Normal 2-4 Albumin/Globulin Ratio 1.8 Normal 1-3 Total Bilirubin 0.40 mg/dL Normal 0.2-1.0 Alkaline Phosphatase 51 U/L Normal 34-104 Alt 10 U/L Normal 7-52 Ast 14 U/L Normal 13-39 Egfr Non- 87.9 >60 Egfr 106.3 >60 2 Laboratory test 08/19/2019 [facility] C Reactive < 1.00 Normal <8.[address] Protein mg/[place] [address] [phone] Erythrocyte Sed Rate 8 mm/Hr Normal 0-29 Lipid Profile 08/19/2019 [facility] Triglycerides 94 mg/dL 3 (Trig/Chol/HDL) [address] [place] [address] [phone] Cholesterol 223 mg/dL 4 HDL Cholesterol 54.7 mg/dL 5 LDL Cholesterol 150 mg/dL 6 Laboratory test 08/19/2019 [facility] Iron (Fe) 35 g/dL Low 50-212 finding [address] [place] [address] [phone] Vitamin B12 339 pg/mL Normal 180-914 7 Hemoglobin A1c (Glyco HGB) 6.1 % High 4.0-5.6 8 Urinalysis Profile 08/19/2019 [facility] Urine Color Yellow [address] [place] [address] [phone] Urine Appearance Cloudy Urine Specific [place] 1.017 Normal 1.010-1.030 Urine pH 6.0 Normal 5-9 Urine Urobilinogen Negative Negative Urine Ketones Negative Negative Urine Protein Negative Negative Urine Leukocytes Negative Negative Urine Blood Negative Negative Urine Nitrite Negative Negative Urine Bilirubin Negative Negative Urine Glucose Negative Negative Urine Microalbumin 08/19/2019 [facility] Ur Microalbumin < 15.[address] (mg/L) mg/[place] [address] [phone] Urine Creatinine 150.06 mg/dL Urine Microalbumin/Creatinine TNP <31 9 1 Because ethnic data is not always readily available, this report includes an eGFR for both -Americans and non- Americans. The National Kidney Disease Education Program (NKDEP) does not endorse the use of the MDRD equation for patients that are not between the ages of 18 and 70, are , have extremes of body size, muscle mass, or nutritional status, or are non- or non-. According to the National Kidney Foundation, irrespective of diagnosis, the stage of the disease is based on the level of kidney function: Stage Description GFR(mL/min/1.73 m(2)) 1 Kidney damage with normal or decreased GFR 90 2 Kidney damage with mild decrease in GFR 60-89 3 Moderate decrease in GFR 30-59 4 Severe decrease in GFR 15-29 5 Kidney failure <15 (or dialysis) 2 Because ethnic data is not always readily available, this report includes an eGFR for both -Americans and non- Americans. The National Kidney Disease Education Program (NKDEP) does not endorse the use of the MDRD equation for patients that are not between the ages of 18 and 70, are , have extremes of body size, muscle mass, or nutritional status, or are non- or non-. According to the National Kidney Foundation, irrespective of diagnosis, the stage of the disease is based on the level of kidney function: Stage Description GFR(mL/min/1.73 m(2)) 1 Kidney damage with normal or decreased GFR 90 2 Kidney damage with mild decrease in GFR 60-89 3 Moderate decrease in GFR 30-59 4 Severe decrease in GFR 15-29 5 Kidney failure <15 (or dialysis) 3 Desirable: <150 Borderline High: 150-199 High: 200-499 Very High: >500 4 Desirable: <200 Borderline High: 200-239 High: >239 5 Low: <40 Desirable: 40-60 High: >60 6 Desirable: <100 Near Optimal: 100-129 Borderline High: 130-159 High: 160-189 Very High: >189 7 Normal Range 180 to 914 Indeterminate Range 145 to 180 Deficient Range <145 8 Therapeutic target for the treatment of diabetes mellitus patients is <7% HBA1C, and in selective patients <6.0%. Please refer to [place] [employer] diabetic care guidelines for further information. 9 Unable to calculate due to low microalbumin Procedures Date Code Description Status 10/08/2017 [id number] Mammogram Completed 08/24/2015 [id number] Mammogram Completed 11/10/2013 [id number] Diabetic Retinal Eye Exam Completed 08/04/2013 [id number] Mammogram Completed Medical Devices Description No Information Available Encounters Type Date Location Provider Dx Diagnosis Office Visit 11/11/2019 Rheumatology Gamal Boyd, L40.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 11:30a [facility] [employer] PROJECT MANAGER arthropathy L40.9 Psoriasis, unspecified K57.32 Dvtrcli of lg int w/o perforation or abscess w/o bleeding K59.00 Constipation, unspecified Z79.899 Other longterm (current) drug therapy Z23 Encounter for immunization Office Visit 09/30/2019 10:30a Rheumatology Zsofia L40.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 [facility] DALIA Boyd arthropathy L40.9 Psoriasis, unspecified Z79.899 Other longterm (current) drug therapy Z23 Encounter for immunization Assessments Date Code Description Provider 11/11/2019 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 Zsofia Oliver, LOGISTICS PROJECT MANAGER 11/11/2019 L40.9 Psoriasis, unspecified Zsofia Oliver, LOGISTICS PROJECT MANAGER 11/11/2019 K57.32 Diverticulitis of large intestine without Zsofia Oliver, LOGISTICS PROJECT MANAGER perforation or abscess without bleeding 11/11/2019 K59.00 Constipation, unspecified Zsofia Oliver, LOGISTICS PROJECT MANAGER 11/11/2019 Z79.899 Other finisher polisher (current) drug therapy Zsofia Oliver, LOGISTICS PROJECT MANAGER 11/11/2019 Z23 Encounter for immunization Zsofia Oliver, LOGISTICS PROJECT MANAGER 09/30/2019 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 Zsofia Oliver, LOGISTICS PROJECT MANAGER 09/30/2019 L40.9 Psoriasis, unspecified Zsofia Oliver, LOGISTICS PROJECT MANAGER 09/30/2019 Z79.899 Other finisher polisher (current) drug therapy Zsofia Oliver, LOGISTICS PROJECT MANAGER 09/30/2019 Z23 Encounter for immunization RUBA SidhuP Plan of Treatment Future Appointment(s):01/13/2020 11:30 am - DALIA Sidhu at [facility]11/11/2019 - RUBA SidhuP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Comments:Will discussed to start back on Humira as your infection has resolved.Please continue on MTX, 1 tabof hydrochloroquine and on Meloxicam to reduce pain and inflammation.We may need to change Humira to an oral medication like Xeljanz or Olumiant that is taken every day so that is easier ho hold or restart if you are suspecting onset of infection. Monitor symptoms , especially small joint pain and swelling for about a monthFollow up: 2 month with labs vtkovA44.9 Psoriasis, vsmsbgygbgkY78.32 Diverticulitis of large intestine without perforation or abscess without bleedingReferral:Yobani Cain MD, CtirvzbdfcqoolfnZ58.00 Constipation, unspecifiedComments:I recommend to increase fiber in your diet and your water intake.OTC Metamucil is a good option Walking regularly every day also helps to prevent fjizurvdkyucB69.899 Other finisher polisher (current) drug therapyComments:Please call if have sign or symptoms of infection.Z23 Encounter for immunizationComments: PrevnarWe discussed vaccination against pneumonia, this vaccine is called Prevnar 13. This vaccine is effective for a lifetime.A second, different vaccine is available that is recommended a year afterPrevnar. Functional Status Description No Information Available Mental Status Description No Information Available Referrals Refer to Reason for Referral Status Appt Date Yobani Cain MD Sent 12/13/[address] [place] [address] [phone]
--- OUTSIDE RECORDS SUMMARY | 2020-01-03 13:42 | XMS REPORT | Continuity of Care Document ---
:1965 External Reference #:[id number] Author Name Yobani Cain MD Address [address] [place] [id number] Care Team Providers Name Role Phone Sammy Floyd MD - Surgery Care Team Information Manager Cost [phone] Gamal Boyd FNP - Nurse Care Team Information Manager Cost [phone] Practitioner Problems Active Problems Provider Date Diverticulitis of colon Yobani Cain MD Onset: 12/13/2019 Esophageal dysphagia Yobani Cain MD Onset: 01/19/2019 Nausea and vomiting Yobani Cain MD Onset: 07/01/2012 Epigastric pain Yobani Cain MD Onset: 07/01/2012 Social History Type Date Description Comments Sex Unknown Tobacco Use Start: Unknown Patient has never smoked Smoking Status Reviewed: 12/13/19 Patient has never smoked Allergies, Adverse Reactions, Alerts Active Allergies Reaction Severity Comments Date Iodine 04/17/2011 Ultram 07/01/2012 Levaquin chest pain 11/15/2019 Artificial Sweeteners HIGHLY ALLERGIC Severe 12/19/2016 Aspartame Free Text Severe 12/21/2018 Zofran anaphylaxsis 11/15/2019 Iodinated Diagnostic Agents Severe 12/21/2018 Medications Active Medications SIG Qnty Indications Ordering Date Provider Meloxicam 1 by mouth twice a 60tabs L40.59 Oliver, 7.5mg Tablets day every day Zsofia, FOREST TECHNOLOGY PROFESSOR 9 Humira Pen inject content of 6units L40.59 Oliver, 40mg/0.4ML PNKT one pen Zsofia, FOREST TECHNOLOGY PROFESSOR 9 subcutaneously every other week Gabapentin 1 tab by mouth at 30caps G89.4 Oliver, 100mg Capsules night Zsofia, FOREST TECHNOLOGY PROFESSOR 7 Diclofenac Sodium apply 10 150units L40.59 Oliver, 1.5% milliliters to Zsofia, FOREST TECHNOLOGY PROFESSOR 6 Solution hands 2x daily as needed for pain Methotrexate 6 tbs by mouth 72tabs L40.59 [facility], 2.5mg Tablets every week Zsofia, FOREST TECHNOLOGY PROFESSOR 6 Ventolin HFA 2 puffs every 4 1units Evelin Olivera, 108(90Base) hours as needed for RACKING MACHINE OPERATOR 5 mcg/Act Aerosol cough or shortness of breath Acetaminophen-Codeine 1 by mouth every 6 60tabs Sabrina Huddleston MD #3 hours as needed 5 300-30mg Tablets Tizanidine HCL 1-2 by mouth twice 90caps Sabrina Huddleston MD 2mg Capsules a day as needed for 5 muscle spasm Epipen 2-Jeremy sc prn 2units Unknown 0.3mg/0.3ML 3 Solution Auto-Inject Montelukast Sodium take one tablet by 90tabs Sabrina Huddleston MD 10mg mouth every day 3 Tablets Ipratropium Voss one vial q4hrs/sob 1units Buffy, 0.02% MD Javier 1 Solution Nabumetone take one tablet by 60tabs L40.59 [facility], 750mg Tablets mouth once a day as Zsofia, FOREST TECHNOLOGY PROFESSOR 1 needed Folic Acid take one tablet by 90tabs Sabrina Huddleston MD 1mg Tablets mouth every day 0 Albuterol Sulfate 1 ampule per neb 1units Evelin Olivera, every 6 hours as RACKING MACHINE OPERATOR 9 (2.5mg/3ML) 0.083% needed cough, Nebulizer wheezing Hydroxychloroquine 1 po qd 90tabs Oliver, Sulfate Zsofia, FOREST TECHNOLOGY PROFESSOR 0 200mg Tablets Pantoprazole Sodium 1 by mouth every 90tabs Sabrina Huddleston MD 40mg day [address] Ferrous Sulfate 1 by mouth every Unknown 325(65Fe) day 0 mg Tablets Excedrin Migraine prn Unknown 0 [id number] Tablets Sumatriptan Succinate as needed Unknown 25mg 0 Tablets Excedrin Migraine 1 by mouth twice a Unknown day as needed 0 [phone] Tablets headache max 2 days/wk Immunizations CPT Code Status Date Vaccine Lot # [id number] Given 11/11/2019 Pneumococcal Conjugate Vaccine 13 Valent For Intramuscular Use 17554 Given 09/30/2019 Influenza Virus Vaccine, Quadrivalent, Split, Preservative Free 28924 Given 07/20/2015 Influenza Virus Vaccine, Quadrivalent, Split, Preservative Free 52278 Given 08/26/2013 Influenza Virus Vaccine Split Virus Use For Individual 3Yr Older Vital Signs Date Vital Result Comment 12/13/2019 2:08pm Height 63 inches 5'3" Weight 178.00 lb BP Systolic 126 mmHg BP Diastolic 75 mmHg Heart Rate 69 /min BMI (Body Mass Index) 31.5 kg/m2 01/19/2019 10:13am Height 63 inches 5'3" Weight 177.00 lb BP Systolic 118 mmHg BP Diastolic 78 mmHg Heart Rate 76 /min BMI (Body Mass Index) 31.4 kg/m2 Results Test Acquired Date Facility Test Result H/L Range Note CBC Auto Diff 09/30/2019 N2N/CCD Import White Blood 8.8 10^3/uL 3.5- 10.8 Count Red Blood Count 4.21 10^6/uL 3.70-4.87 Hemoglobin 10.6 g/dL Low 12.0-16.0 Hematocrit 32 % Low 35-47 Mean Corpuscular Volume 77 fL Low 80-97 Mean Corpuscular Hemoglobin 25 pg Low 27-31 Mean Corpuscular HGB Conc 33 g/dL 31-36 Red Cell Distribution Width 18 % High 10-15 Platelet Count 404 10^3/uL 150-450 Mean Platelet Volume 7.3 fL Low 7.4-10.4 Abs Neutrophils 5.1 10^3/uL 1.5-7.7 Abs Lymphocytes 2.7 10^3/uL 1.0-4.8 Abs Monocytes 0.8 10^3/uL 0-0.8 Abs Eosinophils 0.2 10^3/uL 0-0.6 Abs Basophils 0.1 10^3/uL 0-0.2 Abs Nucleated RBC 0.0 10^3/uL Granulocyte % 57.4 % Lymphocyte % 30.6 % Monocyte % 8.6 % Eosinophil % 2.8 % Basophil % 0.6 % Nucleated Red Blood Cells % 0.0 1 Lab Results 09/30/2019 N2N/CCD Import Sodium 139 mmol/L 135-145 Potassium 4.2 mmol/L 3.5-5.0 Chloride 108 mmol/L 101-111 Co2 Carbon Dioxide 25 mmol/L 22-32 Anion Gap 6 mmol/L 2-11 Glucose 92 mg/dL 70-100 Blood Urea Nitrogen 10 mg/dL 6-24 Creatinine 0.75 mg/dL 0.51-0.95 BUN/Creatinine Ratio 13.3 1 8-20 Calcium 9.5 mg/dL 8.6-10.3 Total Protein 6.4 g/dL 6.4-8.9 Albumin 4.4 g/dL 3.2-5.2 Globulin 2.0 g/dL 2-4 Albumin/Globulin Ratio 2.2 1 1-3 Total Bilirubin 0.30 mg/dL 0.2-1.0 Alkaline Phosphatase 48 U/L 34-104 Alt 12 U/L 7-52 Ast 14 U/L 13-39 Egfr Non- 81.1 1 Egfr 98.2 1 1 C Reactive Protein < 1.00 mg/L Erythrocyte Sed Rate 6 mm/Hr 0-29 CBC Auto Diff 08/19/2019 N2N/CCD Import White Blood Count 6.1 10^3/uL 3.5-10.8 Red Blood Count 4.35 10^6/uL 3.70-4.87 Hemoglobin 10.7 g/dL Low 12.0-16.0 Hematocrit 34 % Low 35-47 Mean Corpuscular Volume 77 fL Low 80-97 Mean Corpuscular Hemoglobin 25 pg Low 27-31 Mean Corpuscular HGB Conc 32 g/dL 31-36 Red Cell Distribution Width 17 % High 10-15 Platelet Count 430 10^3/uL 150-450 Mean Platelet Volume 7.1 fL Low 7.4-10.4 Abs Neutrophils 3.1 10^3/uL 1.5-7.7 Abs Lymphocytes 2.1 10^3/uL 1.0-4.8 Abs Monocytes 0.6 10^3/uL 0-0.8 Abs Eosinophils 0.2 10^3/uL 0-0.6 Abs Basophils 0.1 10^3/uL 0-0.2 Abs Nucleated RBC 0.0 10^3/uL Granulocyte % 51.1 % Lymphocyte % 34.9 % Monocyte % 9.4 % Eosinophil % 3.5 % Basophil % 1.1 % Nucleated Red Blood Cells % 0.1 1 Lab Results 08/19/2019 N2N/CCD Import Sodium 140 mmol/L 135-145 Potassium 4.3 mmol/L 3.5-5.0 Chloride 108 mmol/L 101-111 Co2 Carbon Dioxide 25 mmol/L 22-32 Anion Gap 7 mmol/L 2-11 Glucose 87 mg/dL 70-100 Blood Urea Nitrogen 10 mg/dL 6-24 Creatinine 0.70 mg/dL 0.51-0.95 BUN/Creatinine Ratio 14.3 1 8-20 Calcium 9.5 mg/dL 8.6-10.3 Total Protein 6.4 g/dL 6.4-8.9 Albumin 4.1 g/dL 3.2-5.2 Globulin 2.3 g/dL 2-4 Albumin/Globulin Ratio 1.8 1 1-3 Total Bilirubin 0.40 mg/dL 0.2-1.0 Alkaline Phosphatase 51 U/L 34-104 Alt 10 U/L 7-52 Ast 14 U/L 13-39 Egfr Non- 87.9 1 Egfr 106.3 1 2 C Reactive Protein < 1.00 mg/L Erythrocyte Sed Rate 8 mm/Hr 0-29 Lipid Profile (Trig/Chol/HDL) 08/19/2019 N2N/CCD Import Triglycerides 94 mg /dL 3 Cholesterol 223 mg/dL 4 HDL Cholesterol 54.7 mg/dL 5 LDL Cholesterol 150 mg/dL 6 Lab Results 08/19/2019 N2N/CCD Import Iron (Fe) 35 g/dL Low 50-212 Vitamin B12 339 pg/mL 180-914 7 Hemoglobin A1c (Glyco HGB) 6.1 % High 4.0-5.6 8 Urinalysis Profile 08/19/2019 N2N/CCD Import Urine Color Yellow Urine Appearance Cloudy Urine Specific [place] 1.017 1 1.010-1.030 Urine pH 6.0 1 5-9 Urine Urobilinogen Negative Urine Ketones Negative Urine Protein Negative Urine Leukocytes Negative Urine Blood Negative Urine Nitrite Negative Urine Bilirubin Negative Urine Glucose Negative Urine Microalbumin 08/19/2019 N2N/CCD Import Ur Microalbumin < 15.0 mg/L Random (mg/L) Urine Creatinine 150.06 mg/dL Urine Microalbumin/Creatinine TNP 9 1 Because ethnic data is not [...] in selective patients <6.0%. Please refer to [place] [employer] diabetic care guidelines for further information. 9 Unable to calculate due to low microalbumin Procedures Description No Information Available Medical Devices Description No Information Available Encounters Description No Information Available Assessments Date Code Description Provider 12/13/2019 K57.32 Diverticulitis of large intestine without Yobani Cain MD perforation or abscess without bleeding Plan of Treatment 12/13/2019 - Yobani Cain MDK57.32 Diverticulitis of large intestine without perforation or abscess without bleedingComments:I had a very long discussion with the patient regarding potential preventative measures for diverticulitis. Unfortunately we do not really have anything great offer. We did discuss routine good bowelhabits, using probiotics fiber and fluids. She is up-to-date on colonoscopies her last one was 2-1/2 years ago I do not believe she needs another colonoscopy at this point. She will work on all theseefforts and then report back to me. We also had a discussion regarding her use of immunosuppressants for her rheumatoid arthritis and the diverticulosis/diverticulitis. Any of the RA medicines will be fine. Obviously these medicines lower her immune system thus she needs to monitor for any change in symptoms closely Functional Status Description No Information Available Mental Status Description No Information Available Referrals Description No Information Available
[2020-01-03 15:32] LABS: ABS Basophils 0.1 10^3/ul (0-0.2); ABS Eosinophils 0.2 10^3/ul (0-0.6); ABS Lymphocytes 2.4 10^3/ul (1.0-4.8); ABS Monocytes 0.5 10^3/ul (0-0.8); ABS Neutrophils 4.5 10^3/ul (1.5-7.7); Eosinophil % 2.8 %; Hematocrit 34 % (35-47); Hemoglobin 10.6 g/dL (12.0-16.0); Lymphocyte % 30.6 %; Mean Corpuscular HGB Conc 32 g/dL (31-36); Mean Corpuscular Hemoglobin 24 pg (27-31); Mean Corpuscular Volume 77 fL (80-97); Mean Platelet Volume 7.1 fL (7.4-10.4); Platelet Count 492 10^3/uL (150-450); Red Blood Count 4.36 10^6 /uL (3.70-4.87); Red Cell Distribution Width 18 % (10-15); White Blood Count 7.7 10^3/uL (3.5-10.8)
[2020-01-03 15:50] LABS: ALT 13 U/L (7-52); AST 15 U/L (13-39); Albumin 4.2 g/dL (3.2-5.2); Albumin/Globulin Ratio 1.6 (1-3); Alkaline Phosphatase 43 U/L (34-104); Anion Gap 6 mmol/L (2-11); BUN/Creatinine Ratio 14.5 (8-20); Blood Urea Nitrogen 10 mg/dL (6-24); C Reactive Protein < 1.00 mg/L (<8.01); CO2 Carbon Dioxide 27 mmol/L (22-32); Calcium 9.3 mg/dL (8.6-10.3); Chloride 107 mmol/L (101-111); EGFR African American 107.7 (>60); Globulin 2.6 g/dL (2-4); Glucose 84 mg/dL (70-100); Magnesium 2.1 mg/dL (1.9-2.7); Sodium 140 mmol/L (135-145); Total Protein 6.8 g/dL (6.4-8.9)
[2020-01-03] MEDS ORDERED: Ketorolac *IM* INJ* 60 MG/2 ML VIAL IM ONE (16:17)
[2020-01-03 16:19] LABS: Urine Appearance Clear; Urine Bilirubin Negative (Negative); Urine Blood 2+ (Negative); Urine Color Yellow; Urine Glucose Negative (Negative); Urine Ketones Negative (Negative); Urine Nitrite Negative (Negative); Urine Protein Negative (Negative); Urine Specific Gravity 1.014 (1.010-1.030); Urine Urobilinogen Negative (Negative)
[2020-01-03 16:27] LABS: Urine Bacteria Absent (Absent); Urine Red Blood Cell Trace(0-2/hpf) (Absent); Urine Squamous Epithelial Cell Present (Absent); Urine White Blood Cell Trace(0-5/hpf) (Absent)
--- NOTE | 2020-01-03 17:11 | ED ---
Back Pain - HPI Summary HPI Summary: This patient is a 54-year-old female presenting to the ED with left-sided flank pain radiating into the left shoulder blade. She also notices some radiation to the left lower quadrant. She does have a history of bilateral kidney stones and diverticulitis. She has had stent placements in the past. Denies any urinary symptoms including gross hematuria. Patient states she does not feel that this is a kidney stone as symptoms have been present times approximately 6 days. The pain has been intermittent, rated 5/10, aching without stabbing pain. She believes this to be related to her diverticulitis. She denies any nausea, vomiting, diarrhea, constipation. Denies any chest pain or shortness of breath. Patient has not been taking medication for relief. She remains ambulatory. Positioning does not make the pain better or worse. - History of Current Complaint Chief Complaint: EDFlankPain Stated Complaint: LT FLANK PAIN PER PT Time Seen by Provider: 01/03/20 14:47 Hx Obtained From: Patient Onset/Duration: Gradual Onset Onset/Duration: Started Days Ago Timing: Constant Back Pain Location: Is Discrete @ - left flank Severity Initially: Moderate Severity Currently: Moderate Pain Intensity: 4 Pain Scale Used: 0-10 Numeric Character: Aching Associated Signs And Symptoms: Negative: Swelling, Redness, Bruising, Bladder Incontinence, Bowel Incontinence - Risk Factors AAA Risk Factors: Negative TAD Risk Factors: Negative Cauda Equina Risk Factors: Negative Epidural Abscess Risk Factors: Negative - Allergies/Home Medications Allergies/Adverse Reactions: Allergies Allergy/AdvReac Type Severity Reaction Status Date / Time tramadol Allergy Mild Itching Verified 01/03/20 13:36 Iodinated Contrast Media Allergy Itching Verified 01/03/20 13:36 [Iodinated Contrast- Oral and IV Dye] ondansetron [From Zofran] Allergy Anaphylatic Verified 01/03/20 13:36 Shock SUGAR SUBSTITUTES Allergy Severe Anaphylatic Uncoded 01/03/20 13:36 Shock Home Medications: Home Medications Folic Acid TAB* [Folvite TAB*] 1 mg PO QAM 04/14/18 [History Confirmed 01/03/20] Hydroxychloroquine TAB* [Plaquenil TAB*] 200 mg PO QAM 04/14/18 [History Confirmed 01/03/20] Montelukast Sodium TAB* [Singulair 10 MG TAB*] 10 mg PO QAM 04/14/18 [History Confirmed 01/03/20] Multivitamins/Minerals TAB* [Theragran/minerals TAB*] 1 tab PO QAM 04/14/18 [ History Confirmed 01/03/20] Pantoprazole TAB * [Protonix TAB*] 40 mg PO QAM 04/14/18 [History Confirmed 08/14] Albuterol 2.5MG/3ML (0.083%)* [Ventolin 2.5 MG/3 ML NEB.JOSE J*] 2.5 mg INH Q4H PRN 07/19/18 [History Confirmed 01/03/20] Albuterol HFA INHALER* [Ventolin HFA Inhaler*] 2 puff INH Q4H PRN 07/19/18 [ History Confirmed 01/03/20] SUMAtriptan TAB* [Imitrex TAB*] 25 mg PO SEE INSTRUCTIONS PRN 07/19/18 [History Confirmed 01/03/20] EPINEPHrine [Epipen 2-Jeremy] 0.3 mg IM ONCE PRN 08/30/18 [History Confirmed ] Acetaminophen with Codeine [Acetaminophen/Codeine Arabella 300-30 mg] 1 tab PO Q6HR PRN 01/27/19 [History Confirmed 01/03/20] Aspirin/Acetaminophen/Caffeine [Excedrin Migraine Caplet] 1 each PO DAILY [History Confirmed 01/03/20] Diclofenac 1% GEL (NF) [Voltaren 1% GEL (NF)] 1 applic TOPICAL BID PRN 01/27/19 [History Confirmed 01/03/20] Methotrexate TAB* 15 mg PO WEEKLY 01/27/19 [History Confirmed 01/03/20] Nabumetone TAB* [Relafen TAB*] 1 tab PO DAILY PRN 01/27/19 [History Confirmed ] tiZANidine TAB* [Zanaflex TAB*] 2 mg PO BID 01/27/19 [History Confirmed 01/03/20 ] Ipratropium HFA INHALER(NF) [Atrovent Hfa Inhaler(NF)] 1 puff INH Q4H PRN [History Confirmed 01/03/20] Ketorolac TAB * [Toradol TAB *] 10 mg PO Q6H #16 tab 01/03/20 [Rx] PMH/Surg Hx/FS Hx/Imm Hx Previously Healthy: Yes Endocrine/Hematology History: Reports: Hx Diabetes - HX OF PRIOR TO GASTRIC BYPASS Cardiovascular History: Denies: Hx Hypertension, Hx Pacemaker/ICD Respiratory History: Reports: Hx Asthma, Hx Sleep Apnea - HX OF PRIOR TO GASTRIC BYPASS, Other Respiratory Problems/Disorders - HX OF PNEUMONIA- LAST 3 YEARS AGO Denies: Hx Chronic Obstructive Pulmonary Disease (COPD) GI History: Reports: Hx Gastroesophageal Reflux Disease - ON MEDICATION FOR, Other GI Disorders - Diverticulitis History: Reports: Hx Kidney Infection - CURRENTLY ON ANTIBIOTIC FOR PER PATIENT, Hx Kidney Stones - with right uretal stent, Other Problems/ Disorders - Medullary Sponge Kidney Denies: Hx Renal Disease Musculoskeletal History: Reports: Hx Arthritis - PSORIATIC AND RHEUMATOID, Hx Rheumatoid Arthritis Sensory History: Reports: Hx Contacts or Glasses - GLASSES Denies: Hx Deafness, Hx Hearing Aid, Other Sensory Impairments Opthamlomology History: Reports: Hx Contacts or Glasses - GLASSES Denies: Other Sensory Impairments Neurological History: Reports: Hx Migraine - PRN MEDICATION FOR Psychiatric History: Denies: Hx Panic Disorder - Cancer History Hx Chemotherapy: No Hx Radiation Therapy: No - Surgical History Surgery Procedure, Year, and Place: GASTRIC BYPASS 10/07 [place]. D+C X3 [facility] [place]. BILAT CTR [facility] [place] 2003,2004. LAPAROSCOPY 1993 [place]. TONSILLECTOMY 1981 [facility] [place]. RIGHT URETERAL STENT INSERTION-06/2018 Hx Anesthesia Reactions: No - Immunization History Hx Pertussis Vaccination: No Immunizations Up to Date: Yes Infectious Disease History: No Infectious Disease History: Denies: Traveled Outside the [place] in Last 30 Days - Family History Known Family History: Positive: Respiratory Disease Negative: Cardiac Disease, Blood Disorder - Social History Occupation: Employed Full-time Lives: With Family Alcohol Use: Occasionally Hx Substance Use: No Substance Use Type: Reports: None Hx Tobacco Use: No Smoking Status (MU): Never Smoked Tobacco Have You Smoked in the Last Year: No Review of Systems Negative: Fever, Chills, Fatigue, Skin Diaphoresis Negative: Palpitations, Chest Pain Negative: Shortness Of Breath Positive: Abdominal Pain. Negative: Vomiting, Diarrhea, Nausea Genitourinary: Negative Positive: no symptoms reported, see HPI Positive: Arthralgia - left flank pain radiating to the L upper back and LLQ. Negative: Myalgia Skin: Negative All Other Systems Reviewed And Are Negative: Yes Physical Exam Triage Information Reviewed: Yes Vital Signs On Initial Exam: Initial Vitals Temp Pulse Resp BP Pulse Ox 98.1 F 80 16 136/95 98 01/03/20 13:34 01/03/20 13:34 01/03/20 13:34 01/03/20 13:34 01/03/20 13:34 Vital Signs Reviewed: Yes Appearance: Positive: Well-Appearing, Well-Nourished Skin: Positive: Warm, Skin Color Reflects Adequate Perfusion Head/Face: Positive: Normal Head/Face Inspection Eyes: Positive: EOMI, RHONDA, Conjunctiva Clear Respiratory/Lung Sounds: Positive: Clear to Auscultation, Breath Sounds Present Cardiovascular: Positive: RRR, Pulses are Symmetrical in both Upper and Lower Extremities Abdomen Description: Positive: Nontender, No Organomegaly Musculoskeletal: Positive: Pain @ - left lower back pain Neurological: Positive: Speech Normal Psychiatric: Positive: Normal, Affect/Mood Appropriate AVPU Assessment: Alert Procedures - Sedation Patient Received Moderate/Deep Sedation with Procedure: No Diagnostics - Vital Signs Vital Signs Temp Pulse Resp BP Pulse Ox 01/03/20 15:06 76 150/98 99 01/03/20 15:02 73 159/90 99 01/03/20 13:34 98.1 F 80 16 136/95 98 - Laboratory Lab Results: Lab Results 01/03/20 01/03/20 01/03/20 Range/Units 15:17 15:17 15:17 WBC 7.7 (3.5-10.8) 10^3/uL RBC 4.36 (3.70-4.87) 10^6 /uL Hgb 10.6 L (12.0-16.0) g/dL Hct 34 L (35-47) % MCV 77 L (80-97) fL MCH 24 L (27-31) pg MCHC 32 (31-36) g/dL RDW 18 H (10-15) % Plt Count 492 H (150-450) 10^3/uL MPV 7.1 L (7.4-10.4) fL Neut % (Auto) 57.9 % Lymph % (Auto) 30.6 % [place] % (Auto) 7.0 % Eos % (Auto) 2.8 % Baso % (Auto) 1.7 % Absolute Neuts (auto) 4.5 (1.5-7.7) 10^3/ul Absolute Lymphs (auto) 2.4 (1.0-4.8) 10^3/ul Absolute Monos (auto) 0.5 (0-0.8) 10^3/ul Absolute Eos (auto) 0.2 (0-0.6) 10^3/ul Absolute Basos (auto) 0.1 (0-0.2) 10^3/ul Absolute Nucleated RBC 0.0 10^3/ul Nucleated RBC % 0.0 INR (Anticoag Therapy) 1.00 (0.82-1.09) Sodium 140 (135-145) mmol/L Potassium 4.0 (3.5-5.0) mmol/L Chloride 107 (101-111) mmol/L Carbon Dioxide 27 (22-32) mmol/L Anion Gap 6 (2-11) mmol/L BUN 10 (6-24) mg/dL Creatinine 0.69 (0.51-0.95) mg/dL Est GFR ( Amer) 107.7 (>60) Est GFR (Non-Af Amer) 89.0 (>60) BUN/Creatinine Ratio 14.5 (8-20) Glucose 84 (70-100) mg/dL Lactic Acid (0.5-2.0) mmol/L Calcium 9.3 (8.6-10.3) mg/dL Magnesium 2.1 (1.9-2.7) mg/dL Total Bilirubin 0.20 (0.2-1.0) mg/dL AST 15 (13-39) U/L ALT 13 (7-52) U/L Alkaline Phosphatase 43 (34-104) U/L C-Reactive Protein < 1.00 (<8.01) mg/L Total Protein 6.8 (6.4-8.9) g/dL Albumin 4.2 (3.2-5.2) g/dL Globulin 2.6 (2-4) g/dL Albumin/Globulin Ratio 1.6 (1-3) Lipase 43 (11.0-82.0) U/L Urine Color Urine Appearance Urine pH (5-9) Ur Specific [place] (1.010-1.030) Urine Protein (Negative) Urine Ketones (Negative) Urine Blood (Negative) Urine Nitrate (Negative) Urine Bilirubin (Negative) Urine Urobilinogen (Negative) Ur Leukocyte Esterase (Negative) Urine WBC (Auto) (Absent) Urine RBC (Auto) (Absent) Ur Squamous Epith Cells (Absent) Urine Bacteria (Absent) Urine Glucose (Negative) Urine Ascorbic Acid (Negative) 01/03/20 01/03/20 Range/Units 15:17 15:25 WBC (3.5-10.8) 10^3/uL RBC (3.70-4.87) 10^6 /uL Hgb (12.0-16.0) g/dL Hct (35-47) % MCV (80-97) fL MCH (27-31) pg MCHC (31-36) g/dL RDW (10-15) % Plt Count (150-450) 10^3/uL MPV (7.4-10.4) fL Neut % (Auto) % Lymph % (Auto) % [place] % (Auto) % Eos % (Auto) % Baso % (Auto) % Absolute Neuts (auto) (1.5-7.7) 10^3/ul Absolute Lymphs (auto) (1.0-4.8) 10^3/ul Absolute Monos (auto) (0-0.8) 10^3/ul Absolute Eos (auto) (0-0.6) 10^3/ul Absolute Basos (auto) (0-0.2) 10^3/ul Absolute Nucleated RBC 10^3/ul Nucleated RBC % INR (Anticoag Therapy) (0.82-1.09) Sodium (135-145) mmol/L Potassium (3.5-5.0) mmol/L Chloride (101-111) mmol/L Carbon Dioxide (22-32) mmol/L Anion Gap (2-11) mmol/L BUN (6-24) mg/dL Creatinine (0.51-0.95) mg/dL Est GFR ( Amer) (>60) Est GFR (Non-Af Amer) (>60) BUN/Creatinine Ratio (8-20) Glucose (70-100) mg/dL Lactic Acid 1.0 (0.5-2.0) mmol/L Calcium (8.6-10.3) mg/dL Magnesium (1.9-2.7) mg/dL Total Bilirubin (0.2-1.0) mg/dL AST (13-39) U/L ALT (7-52) U/L Alkaline Phosphatase (34-104) U/L C-Reactive Protein (<8.01) mg/L Total Protein (6.4-8.9) g/dL Albumin (3.2-5.2) g/dL Globulin (2-4) g/dL Albumin/Globulin Ratio (1-3) Lipase (11.0-82.0) U/L Urine Color Yellow Urine Appearance Clear Urine pH 6.0 (5-9) Ur Specific [place] 1.014 (1.010-1.030) Urine Protein Negative (Negative) Urine Ketones Negative (Negative) Urine Blood 2+ A (Negative) Urine Nitrate Negative (Negative) Urine Bilirubin Negative (Negative) Urine Urobilinogen Negative (Negative) Ur Leukocyte Esterase 2+ A (Negative) Urine WBC (Auto) Trace(0-5/hpf) (Absent) Urine RBC (Auto) Trace(0-2/hpf) (Absent) Ur Squamous Epith Cells Present A (Absent) Urine Bacteria Absent (Absent) Urine Glucose Negative (Negative) Urine Ascorbic Acid * A (Negative) Result Diagrams: 01/03/20 15:17 01/03/20 15:17 Lab Statement: Any lab studies that have been ordered have been reviewed, and results considered in the medical decision making process. Back Pain Course/Dx - Course Course Of Treatment: Tetanus was treatment, the patient's evaluated for left- sided flank pain radiating to the LLQ with radiation up into the left shoulder blade. On physical examination, patient has CVA tenderness to the left side. She also has tenderness to thoracic paraspinal area without pain directly over the spine. No tenderness to the scapula. No limitations with range of motion to the neck. Able to flex and extend without discomfort. No tenderness to the abdomen bilaterally on palpation. Labs obtained: Patient has a normal white count with a negative CRP. Urine shows 2+ RBCs with no evidence of infection. CT abdomen/pelvis obtained:IMPRESSION: 1. BILATERAL NEPHROLITHIASIS WITHOUT HYDRONEPHROSIS. 2. HIATAL HERNIA. 3. DIVERTICULOSIS. Discussed results with the patient. Discussed with the patient and believe this to be musculoskeletal. There is no evidence of an infection with labs or CT. Patient is afebrile and vital signs are stable. She appears well. She is given a prescription for Toradol and will follow up with her PCP for any worsening symptoms. Encouraged moist heat to the area. Patient is okay for discharge at this time and remains stable. - Diagnoses Differential Diagnosis/HQI/PQRI: Positive: Strain, Sprain, Other - spasms, renal colic, diverticulitis Provider Diagnoses: Back pain Discharge ED - Sign-Out/Discharge Documenting (check all that apply): Patient Departure - Discharge Plan Condition: Stable Disposition: HOME Prescriptions: Ketorolac TAB * [Toradol TAB *] 10 mg PO Q6H #16 tab Forms: *Work Release Referrals: Sabrina Mcgee MD [Primary Care Provider] - Additional Instructions: Please follow up with Dr. Mcgee regarding your symptoms if you develop any worsening pain If you develop fevers, nausea or vomiting associated with this pain - please return to the ED Toradol four times daily x 4 days Moist heat to the area - Billing Disposition and Condition Condition: STABLE Disposition: Home - Attestation Statements Provider Attestation: I was available for consultation for this patient. I did not evaluate the patient, or participate in any medical decision making or disposition decisions unless I am specifically named in the chart as having consulted on the patient. If I have consulted on the patient, please see my own ED note on the patient encounter. Ksenia Gallardo MD
[2020-01-03 17:47] VITALS: BP 135/71
--- NOTE | 2020-01-05 17:34 | ED ---
Imaging and Labs Follow Up Follow Up Type: Labs/Cultures Labs/Culture Result: Urine culture growing 25-50k GBS. No report of urinary sxs per ED note. Will not treat at this time given low colony count. Patient Communication/Plan: Urine culture growing 25-50k GBS. No report of urinary sxs per ED note. Will not treat at this time given low colony count. Provider Diagnoses: Back pain
== END 2020-01-03 17:43 | disposition home or self-care (01) ==
LOC: ED 13:24
DX: M54.9 Dorsalgia, unspecified (principal); E11.9 Type 2 diabetes mellitus without complications; K21.9 Gastro-esophageal reflux disease without esophagitis; Z79.899 Other long term (current) drug therapy; Z98.84 Bariatric surgery status; Z79.82 Long term (current) use of aspirin
CPT/HCPCS: 36415; 74176; 80053; 81003; 81015; 83605; 83690; 83735; 85025; 85610; 86140; 87077; 87086; 96372; 99282; J1885